=== PATIENT | female | born 1945 | race Caucasian/White ===

== ENCOUNTER → 2016-10-16 | Outpatient (REF) | payer MEDICARE, OTHER ==
[~2016-10-16] MED LIST: /FEXO18TA; /PANT40TA; ALLO100T; BABY81CH; CO Q200C PO; CRES5TAB; ISOS10TA2 PO; LOPR50TA; LUNE3TAB PO; MAXZ75TA2; PLAVIX PO; VERAMYST
[2016-10-16 13:25] LABS: BASO # 0.1 K/mm3 (0.0-0.2); BASO % 0.5 % (0.0-1.0); EOS # 0.2 K/mm3 (0.0-0.50); EOS % 1.5 % (0.0-3.0); LARGE UNSTAINED CELL # 0.1 K/mm3 (0.0-0.4); LARGE UNSTAINED CELL % 1.2 % (0.0-4.0); LYMPH # 1.9 K/mm3 (1.5-4.5); LYMPH % 16.3 % (24.0-44.0); MEAN CORPUSCULAR HEMOGLOBIN 30.7 pg (27.0-33.0); MEAN CORPUSCULAR HGB CONC 33.2 g/dl (32.0-36.5); MEAN CORPUSCULAR VOLUME 92.5 fl (80.0-96.0); MONO # 0.6 K/mm3 (0.0-0.8); MONO % 5.3 % (0.0-5.0); NEUTROPHILS % 75.2 % (36.0-66.0); PLATELET COUNT, AUTOMATED 232 k/mm3 (150-450); RED CELL DISTRIBUTION WIDTH 14.2 % (11.5-14.5); WHITE BLOOD COUNT 10.6 K/mm3 (4.0-10.0)
[2016-10-16 13:33] LABS: ALBUMIN 3.7 GM/DL (3.2-5.2); ALBUMIN/GLOBULIN RATIO 1.23 (1.00-1.93); BILIRUBIN,TOTAL 0.3 MG/DL (0.2-1.0); CREATININE FOR GFR 1.44 MG/DL (0.55-1.02); GLOMERULAR FILTRATION RATE 38.1 (>39); PERCENT SATURATION 22.5 % (13.2-37.4); TOTAL PROTEIN 6.7 GM/DL (6.4-8.2)
== END ==
LOC: M SFHCPLAZ 10:51
PROVIDERS: ATTEND Family Medicine
DX: M10.9 Gout, unspecified (principal); E11.9 Type 2 diabetes mellitus without complications; E78.2 Mixed hyperlipidemia

== ENCOUNTER → 2017-03-08 | Outpatient (REF) | payer MEDICARE, OTHER ==
[2017-03-08 14:33] LABS: CALCIUM OXALATE CRYSTALS SMALL
[2017-03-08 15:22] LABS: ALBUMIN 3.6 GM/DL (3.2-5.2); ALBUMIN/GLOBULIN RATIO 1.16 (1.00-1.93); BILIRUBIN,TOTAL 0.4 MG/DL (0.2-1.0); CALCIUM LEVEL 9.5 MG/DL (8.8-10.2); CREATININE FOR GFR 1.55 MG/DL (0.55-1.02); MAGNESIUM LEVEL 2.4 MG/DL (1.8-2.4); POTASSIUM SERUM 3.9 MEQ/L (3.5-5.1); TOTAL PROTEIN 6.7 GM/DL (6.4-8.2)
[2017-03-08 15:49] LABS: BASO # 0.1 K/mm3 (0.0-0.2); BASO % 0.5 % (0.0-1.0); EOS # 0.2 K/mm3 (0.0-0.50); EOS % 1.3 % (0.0-3.0); LARGE UNSTAINED CELL # 0.1 K/mm3 (0.0-0.4); LARGE UNSTAINED CELL % 1.1 % (0.0-4.0); LYMPH # 1.5 K/mm3 (1.5-4.5); LYMPH % 11.2 % (24.0-44.0); MEAN CORPUSCULAR HEMOGLOBIN 29.8 pg (27.0-33.0); MEAN CORPUSCULAR HGB CONC 31.9 g/dl (32.0-36.5); MEAN CORPUSCULAR VOLUME 93.5 fl (80.0-96.0); MONO # 0.6 K/mm3 (0.0-0.8); NEUTROPHILS % 80.9 % (36.0-66.0); PLATELET COUNT, AUTOMATED 237 k/mm3 (150-450); RED CELL DISTRIBUTION WIDTH 14.4 % (11.5-14.5); WHITE BLOOD COUNT 12.3 K/mm3 (4.0-10.0)
== END ==
LOC: M SFHCPLAZ 11:02
PROVIDERS: ATTEND Family Medicine
DX: N18.3 Chronic kidney disease, stage 3 (moderate) (principal); E11.9 Type 2 diabetes mellitus without complications; N25.81 Secondary hyperparathyroidism of renal origin

== ENCOUNTER → 2017-06-22 | Outpatient (CLI) | payer MEDICARE, BC, OTHER ==
[2017-06-22 12:28] LABS: BASO # 0.1 10^3/uL (0.0-0.2); BASO % 0.5 % (0.0-1.0); EOS # 0.2 10^3/uL (0.0-0.50); IMMATURE GRANULOCYTE % 0.4 % (0-0); LYMPH # 2.1 10^3/uL (1.5-4.5); LYMPH % 18.7 % (24.0-44.0); MEAN CORPUSCULAR HEMOGLOBIN 29.8 pg (27.0-33.0); MEAN CORPUSCULAR HGB CONC 33.2 g/dl (32.0-36.5); MEAN CORPUSCULAR VOLUME 89.8 fl (80.0-96.0); MONO # 1.1 10^3/uL (0.0-0.8); MONO % 9.7 % (0.0-5.0); NEUTROPHILS # 7.6 10^3/uL (1.8-7.7); NEUTROPHILS % 68.7 % (36.0-66.0); PLATELET COUNT, AUTOMATED 249 10^3/uL (150-450); RED CELL DISTRIBUTION WIDTH 14.6 % (11.5-14.5)
[2017-06-22 13:14] LABS: ALBUMIN 3.5 GM/DL (3.2-5.2); ALKALINE PHOSPHATASE 91 U/L (45-117); ALT/SGPT 15 U/L (12-78); ANION GAP 7 MEQ/L (8-16); AST/SGOT 18 U/L (7-37); BILIRUBIN,TOTAL 0.6 MG/DL (0.2-1.0); BLOOD UREA NITROGEN 22 MG/DL (7-18); CALCIUM LEVEL 8.8 MG/DL (8.8-10.2); CARBON DIOXIDE LEVEL 26 MEQ/L (21-32); CHLORIDE LEVEL 106 MEQ/L (98-107); CHOLESTEROL LEVEL 158 MG/DL (<200); CREATININE FOR GFR 1.69 MG/DL (0.55-1.02); FERRITIN 35 NG/ML (8-252); FREE T4 1.15 NG/DL (0.76-1.46); GLOMERULAR FILTRATION RATE 31.7 (>39); GLUCOSE, FASTING 105 MG/DL (83-110); MAGNESIUM LEVEL 2.3 MG/DL (1.8-2.4); PERCENT SATURATION 27.9 % (13.2-45.0); POTASSIUM SERUM 4.3 MEQ/L (3.5-5.1); SODIUM LEVEL 139 MEQ/L (136-145); TOTAL IRON BINDING CAPACITY 301 UG/DL (250-450); TOTAL PROTEIN 6.2 GM/DL (6.4-8.2); TRIGLYCERIDES LEVEL 151 MG/DL (<150)
== END ==
LOC: M LAB 12:10
PROVIDERS: ATTEND Family Medicine
DX: D50.9 Iron deficiency anemia, unspecified (principal); E03.9 Hypothyroidism, unspecified; E78.00 Pure hypercholesterolemia, unspecified; R73.01 Impaired fasting glucose

== ENCOUNTER → 2017-07-12 | Outpatient (REF) | payer MEDICARE, OTHER ==
[2017-07-12 16:51] LABS: VITAMIN B12 LEVEL > 2000 PG/ML (247-911)
[2017-07-12 16:53] LABS: ANION GAP 10 MEQ/L (8-16); BLOOD UREA NITROGEN 17 MG/DL (7-18); CALCIUM LEVEL 8.9 MG/DL (8.8-10.2); CARBON DIOXIDE LEVEL 28 MEQ/L (21-32); CHLORIDE LEVEL 106 MEQ/L (98-107); CHOLESTEROL LEVEL 190 MG/DL (<200); CREATININE FOR GFR 1.48 MG/DL (0.55-1.02); GLOMERULAR FILTRATION RATE 36.8 (>39); GLUCOSE, FASTING 98 MG/DL (83-110); POTASSIUM SERUM 3.1 MEQ/L (3.5-5.1); SODIUM LEVEL 144 MEQ/L (136-145); TRIGLYCERIDES LEVEL 169 MG/DL (<150)
[2017-07-12 16:54] LABS: ALBUMIN 3.9 GM/DL (3.2-5.2)
[2017-07-12 17:06] LABS: IMMUNOGLOBULIN E 27.3 IU/ML (<100)
[2017-07-12 17:22] LABS: BASO # 0.1 10^3/uL (0.0-0.2); BASO % 0.7 % (0.0-1.0); EOS # 0.1 10^3/uL (0.0-0.50); EOS % 1.2 % (0.0-3.0); IMMATURE GRANULOCYTE % 0.4 % (0-0); LYMPH % 16.7 % (24.0-44.0); MEAN CORPUSCULAR HGB CONC 31.2 g/dl (32.0-36.5); MONO # 0.9 10^3/uL (0.0-0.8); MONO % 7.5 % (0.0-5.0); NEUTROPHILS # 8.6 10^3/uL (1.8-7.7); NEUTROPHILS % 73.5 % (36.0-66.0); PLATELET COUNT, AUTOMATED 283 10^3/uL (150-450); RED CELL DISTRIBUTION WIDTH 15.1 % (11.5-14.5); RETIC HEMOGLOBIN EQUIVALENT 34.3 pg (24-36); RETICULOCYTE % 1.6 % (0.5-1.5); WHITE BLOOD COUNT 11.7 10^3/uL (4.0-10.0)
== END ==
LOC: M SFHCPLAZ 11:58
PROVIDERS: ATTEND Family Medicine
DX: D50.9 Iron deficiency anemia, unspecified (principal); N18.3 Chronic kidney disease, stage 3 (moderate); E78.2 Mixed hyperlipidemia; J30.9 Allergic rhinitis, unspecified

== ENCOUNTER 2017-10-05 13:15 | Outpatient (CLI) | payer MEDICARE, BC, OTHER | END 2017-10-09 | LOC: M SLEEP HO 13:15 | DX: G47.33 Obstructive sleep apnea (adult) (pediatric) (principal) | CPT/HCPCS: G0399 ==

== ENCOUNTER → 2018-01-22 | Outpatient (CLI) | payer MEDICARE, BC, OTHER | LOC: M SMT 11:00 | DX: R06.02 Shortness of breath (principal) | CPT/HCPCS: 71046 ==

== ENCOUNTER → 2018-03-11 | Outpatient (CLI) | payer MEDICARE, BC, OTHER ==
[2018-03-11 12:33] LABS: BASO # 0.1 10^3/uL (0.0-0.2); BASO % 0.6 % (0.0-1.0); EOS # 0.3 10^3/uL (0.0-0.50); EOS % 3.4 % (0.0-3.0); HEMATOCRIT 36.2 % (36.0-47.0); HEMOGLOBIN 11.8 g/dl (12.0-15.5); IMMATURE GRANULOCYTE % 0.3 % (0-3.0); LYMPH % 22.6 % (24.0-44.0); MEAN CORPUSCULAR HGB CONC 32.6 g/dl (32.0-36.5); MEAN CORPUSCULAR VOLUME 92.1 fl (80.0-96.0); MONO # 0.8 10^3/uL (0.0-0.8); MONO % 8.9 % (0.0-5.0); NEUTROPHILS # 5.6 10^3/uL (1.8-7.7); NEUTROPHILS % 64.2 % (36.0-66.0); PLATELET COUNT, AUTOMATED 210 10^3/uL (150-450); RED BLOOD COUNT 3.93 10^6/uL (4.00-5.40); RED CELL DISTRIBUTION WIDTH 14.6 % (11.5-14.5); WHITE BLOOD COUNT 8.8 10^3/uL (4.0-10.0)
[2018-03-11 13:39] LABS: VITAMIN B12 LEVEL 1571 PG/ML (247-911)
[2018-03-11 16:35] LABS: ALBUMIN 3.5 GM/DL (3.2-5.2); ALBUMIN/GLOBULIN RATIO 1.17 (1.00-1.93); ALKALINE PHOSPHATASE 94 U/L (45-117); ALT/SGPT 15 U/L (12-78); ANION GAP 10 MEQ/L (8-16); AST/SGOT 17 U/L (7-37); BILIRUBIN,TOTAL 0.4 MG/DL (0.2-1.0); BLOOD UREA NITROGEN 15 MG/DL (7-18); CARBON DIOXIDE LEVEL 25 MEQ/L (21-32); CHLORIDE LEVEL 110 MEQ/L (98-107); CREATININE FOR GFR 1.23 MG/DL (0.55-1.30); GLOMERULAR FILTRATION RATE 45.6 (>39); GLUCOSE, FASTING 88 MG/DL (70-100); MAGNESIUM LEVEL 2.3 MG/DL (1.8-2.4); NT-PRO BNP 1491 PG/ML (<125); POTASSIUM SERUM 3.8 MEQ/L (3.5-5.1); SODIUM LEVEL 145 MEQ/L (136-145); TOTAL PROTEIN 6.5 GM/DL (6.4-8.2)
[2018-03-11 16:51] LABS: ESTIMATED AVERAGE GLUCOSE 128 MG/DL (60-110); HEMOGLOBIN A1c 6.1 %
[2018-03-12 14:28] LABS: INSULIN LEVEL 6.6 uIU/mL (2.6-24.9)
== END ==
LOC: M LAB 11:26
DX: I50.30 Unspecified diastolic (congestive) heart failure (principal); E53.8 Deficiency of other specified B group vitamins; E11.22 Type 2 diabetes mellitus with diabetic chronic kidney disease; N18.3 Chronic kidney disease, stage 3 (moderate)
CPT/HCPCS: 83525

== ENCOUNTER → 2018-07-24 | Outpatient (CLI) | payer MEDICARE, BC, OTHER ==
[2018-07-24 12:23] LABS: BASO # 0.1 10^3/uL (0.0-0.2); BASO % 0.6 % (0.0-1.0); EOS # 0.4 10^3/uL (0.0-0.50); EOS % 4.1 % (0.0-3.0); HEMATOCRIT 38.4 % (36.0-47.0); HEMOGLOBIN 12.1 g/dl (12.0-15.5); LYMPH # 2.2 10^3/uL (1.5-4.5); LYMPH % 22.3 % (24.0-44.0); MEAN CORPUSCULAR HEMOGLOBIN 29.3 pg (27.0-33.0); MEAN CORPUSCULAR HGB CONC 31.5 g/dl (32.0-36.5); MONO % 9.9 % (0.0-5.0); NEUTROPHILS # 6.1 10^3/uL (1.8-7.7); PLATELET COUNT, AUTOMATED 216 10^3/uL (150-450); RED BLOOD COUNT 4.13 10^6/uL (4.00-5.40); WHITE BLOOD COUNT 9.6 10^3/uL (4.0-10.0)
[2018-07-24 12:30] LABS: ALBUMIN 3.4 GM/DL (3.2-5.2); BILIRUBIN,TOTAL 0.4 MG/DL (0.2-1.0); C REACTIVE PROTEIN QUANTITATIV 0.86 MG/DL (0.00-0.30); CALCIUM LEVEL 8.7 MG/DL (8.8-10.2); CHOLESTEROL RISK RATIO 2.796 (<5); CREATININE FOR GFR 1.38 MG/DL (0.55-1.30); GLOMERULAR FILTRATION RATE 39.8 (>39); MAGNESIUM LEVEL 2.1 MG/DL (1.8-2.4); TOTAL PROTEIN 6.4 GM/DL (6.4-8.2); URIC ACID 4.1 MG/DL (2.6-6.0)
[2018-07-24 14:56] LABS: HEMOGLOBIN A1c 6.9 %
== END ==
LOC: M LAB 11:10
PROVIDERS: ATTEND Family Medicine
DX: D72.829 Elevated white blood cell count, unspecified (principal); I50.30 Unspecified diastolic (congestive) heart failure; E78.2 Mixed hyperlipidemia; D50.9 Iron deficiency anemia, unspecified; M10.9 Gout, unspecified

== ENCOUNTER → 2019-01-18 | Outpatient (CLI) | payer MEDICARE, BC, OTHER ==
[~2019-01-18] MED LIST changes: -/PANT40TA; +PROT1TAB2
[2019-01-18 09:28] LABS: ALBUMIN 3.6 GM/DL (3.2-5.2); BILIRUBIN,TOTAL 0.5 MG/DL (0.2-1.0); CALCIUM LEVEL 9.2 MG/DL (8.8-10.2); CREATININE FOR GFR 1.46 MG/DL (0.55-1.30); GLOMERULAR FILTRATION RATE 37.3 (>39); POTASSIUM SERUM 4.1 MEQ/L (3.5-5.1); TOTAL PROTEIN 6.6 GM/DL (6.4-8.2)
[2019-01-18 09:30] LABS: BASO # 0.1 10^3/uL (0.0-0.2); BASO % 0.8 % (0.0-1.0); EOS # 0.5 10^3/uL (0.0-0.50); EOS % 5.6 % (0.0-3.0); HEMOGLOBIN 12.6 g/dl (12.0-15.5); LYMPH # 2.3 10^3/uL (1.5-4.5); LYMPH % 24.9 % (24.0-44.0); MEAN CORPUSCULAR HEMOGLOBIN 30.7 pg (27.0-33.0); MEAN CORPUSCULAR HGB CONC 32.3 g/dl (32.0-36.5); MEAN CORPUSCULAR VOLUME 94.9 fl (80.0-96.0); MONO # 0.9 10^3/uL (0.0-0.8); MONO % 9.9 % (0.0-5.0); NEUTROPHILS # 5.4 10^3/uL (1.8-7.7); NEUTROPHILS % 58.4 % (36.0-66.0); PLATELET COUNT, AUTOMATED 208 10^3/uL (150-450); RED BLOOD COUNT 4.11 10^6/uL (4.00-5.40); WHITE BLOOD COUNT 9.2 10^3/uL (4.0-10.0)
[2019-01-18 13:15] LABS: HEMOGLOBIN A1c 6.2 %
[2019-01-20 10:50] LABS: PTH INTACT 86.6 PG/ML (18.5-88.0)
== END ==
LOC: M LAB 07:49
PROVIDERS: ATTEND Family Medicine
DX: I50.30 Unspecified diastolic (congestive) heart failure (principal); N18.3 Chronic kidney disease, stage 3 (moderate); E11.9 Type 2 diabetes mellitus without complications; E53.8 Deficiency of other specified B group vitamins

== ENCOUNTER → 2019-06-28 | Outpatient (CLI) | payer MEDICARE, BC, OTHER ==
[2019-06-28 11:05] LABS: APPEARANCE, URINE CLEAR (CLEAR); BACTERIA, URINE AUTO 1+ (NEGATIVE); BILIRUBIN, URINE AUTO NEGATIVE (NEGATIVE); BLOOD, URINE BLOOD NEGATIVE (NEGATIVE); COLOR, URINE STRAW (YELLOW); GLUCOSE, URINE (UA) AUTO NEGATIVE (NEGATIVE); KETONE, URINE AUTO NEGATIVE (NEGATIVE); LEUKOCYTE ESTERASE, URINE AUTO NEGATIVE (NEGATIVE); MUCUS, URINE SMALL (NEGATIVE); NITRITE, URINE AUTO NEGATIVE (NEGATIVE); PROTEIN, URINE AUTO NEGATIVE (NEGATIVE); RBC, URINE AUTO 2 /HPF (0-3); SPECIFIC GRAVITY URINE AUTO 1.005 (1.002-1.035); SQUAMOUS EPITHELIAL CELL UR AU 0 /HPF (0-6); UROBILINOGEN, URINE AUTO 0.2 mg/dL (0.0-2.0); WBC, URINE AUTO 1 /HPF (0-3)
[2019-06-28 11:06] LABS: BASO # 0.1 10^3/uL (0.0-0.2); BASO % 0.7 % (0.0-1.0); EOS # 0.4 10^3/uL (0.0-0.5); EOS % 4.5 % (0.0-3.0); HEMATOCRIT 39.2 % (36.0-47.0); HEMOGLOBIN 12.1 g/dl (12.0-15.5); LYMPH # 1.8 10^3/uL (1.5-5.0); LYMPH % 20.3 % (24.0-44.0); MEAN CORPUSCULAR HEMOGLOBIN 28.8 pg (27.0-33.0); MEAN CORPUSCULAR HGB CONC 30.9 g/dl (32.0-36.5); MEAN CORPUSCULAR VOLUME 93.3 fl (80.0-96.0); MONO # 0.8 10^3/uL (0.0-0.8); MONO % 9.1 % (0.0-5.0); NEUTROPHILS # 5.7 10^3/uL (1.5-8.5); NEUTROPHILS % 64.9 % (36.0-66.0); PLATELET COUNT, AUTOMATED 234 10^3/uL (150-450); WHITE BLOOD COUNT 8.8 10^3/uL (4.0-10.0)
[2019-06-28 11:22] LABS: HEMOGLOBIN A1c 6.4 %
[2019-06-28 11:34] LABS: CREATININE, URINE 19.1 MG/DL; MALB URINE SIEMENS 27.3 MG/L; MAU/CREAT RATIO 142.9 MCG/MG (0.0-30.0)
[2019-06-28 11:35] LABS: ALBUMIN 3.3 GM/DL (3.2-5.2); ALT/SGPT 15 U/L (12-78); BILIRUBIN,TOTAL 0.4 MG/DL (0.2-1.0); BLOOD UREA NITROGEN 15 MG/DL (7-18); C REACTIVE PROTEIN QUANTITATIV 0.46 MG/DL (0.00-0.30); CALCIUM LEVEL 8.8 MG/DL (8.8-10.2); CARBON DIOXIDE LEVEL 29 MEQ/L (21-32); CHLORIDE LEVEL 108 MEQ/L (98-107); CHOLESTEROL LEVEL 173 MG/DL (<200); CHOLESTEROL RISK RATIO 3.264 (<5); CPK CREATINE PHOSPHOKINASE 81 U/L (26-192); CREATININE FOR GFR 1.27 MG/DL (0.55-1.30); FREE T4 0.99 NG/DL (0.76-1.46); GLOMERULAR FILTRATION RATE 43.7 (>39); GLUCOSE, FASTING 115 MG/DL (70-100); HDL CHOLESTEROL 53 MG/DL (>40); LDL CHOLESTEROL 78 MG/DL (<100); NON-HDL-C 120 MG/DL; POTASSIUM SERUM 3.6 MEQ/L (3.5-5.1); SODIUM LEVEL 144 MEQ/L (136-145); TOTAL PROTEIN 6.4 GM/DL (6.4-8.2); TRIGLYCERIDES LEVEL 208 MG/DL (<150)
== END ==
LOC: M LAB 10:31
PROVIDERS: ATTEND Family Medicine
DX: D50.9 Iron deficiency anemia, unspecified (principal); E11.9 Type 2 diabetes mellitus without complications

== ENCOUNTER → 2019-11-28 | Outpatient (REF) | payer MEDICARE, OTHER ==
[2019-11-28 15:24] LABS: HEMATOCRIT 38.5 % (36.0-47.0)
[2019-11-28 15:39] LABS: ALBUMIN 3.8 GM/DL (3.2-5.2); BILIRUBIN,TOTAL 0.3 MG/DL (0.2-1.0); CALCIUM LEVEL 9.7 MG/DL (8.8-10.2); CREATININE FOR GFR 1.55 MG/DL (0.55-1.30); FREE T4 1.18 NG/DL (0.76-1.46); GLOMERULAR FILTRATION RATE 34.7 (>39); MAGNESIUM LEVEL 2.5 MG/DL (1.8-2.4); POTASSIUM SERUM 4.9 MEQ/L (3.5-5.1); THYROID STIMULATING HORMONE 2.75 uIU/ML (0.358-3.740); TOTAL PROTEIN 7.1 GM/DL (6.4-8.2); URIC ACID 4.3 MG/DL (2.6-6.0)
[2019-11-28 15:45] LABS: HEMOGLOBIN A1c 6.8 %
[2019-11-28 17:26] LABS: APPEARANCE, URINE CLEAR (CLEAR); BACTERIA, URINE AUTO NEGATIVE (NEGATIVE); BILIRUBIN, URINE AUTO NEGATIVE (NEGATIVE); BLOOD, URINE BLOOD NEGATIVE (NEGATIVE); COLOR, URINE YELLOW (YELLOW); GLUCOSE, URINE (UA) AUTO NEGATIVE (NEGATIVE); KETONE, URINE AUTO NEGATIVE (NEGATIVE); LEUKOCYTE ESTERASE, URINE AUTO NEGATIVE (NEGATIVE); MUCUS, URINE SMALL (NEGATIVE); NITRITE, URINE AUTO NEGATIVE (NEGATIVE); PROTEIN, URINE AUTO NEGATIVE (NEGATIVE); RBC, URINE AUTO 1 /HPF (0-3); SPECIFIC GRAVITY URINE AUTO 1.013 (1.002-1.035); SQUAMOUS EPITHELIAL CELL UR AU 1 /HPF (0-6); UROBILINOGEN, URINE AUTO 0.2 mg/dL (0.0-2.0); WBC, URINE AUTO 1 /HPF (0-3)
== END ==
LOC: M SFHCPLAZ 12:21
PROVIDERS: ATTEND Family Medicine
DX: E11.9 Type 2 diabetes mellitus without complications (principal); E78.2 Mixed hyperlipidemia; D50.9 Iron deficiency anemia, unspecified; N18.3 Chronic kidney disease, stage 3 (moderate); M10.9 Gout, unspecified; I50.30 Unspecified diastolic (congestive) heart failure; E53.8 Deficiency of other specified B group vitamins
CPT/HCPCS: 36415; 80053; 81001; 82043; 82607; 82747; 83036; 83525; 83735; 83880; 83970; 84439; 84443; 84550; 85046; G0463

== ENCOUNTER → 2020-02-10 | Outpatient (CLI) | payer MEDICARE, BC, OTHER ==
[~2020-02-10] MED LIST changes: +ALLE180T33 PO; +B-122500 PO; +CLOP75TA2 PO; +COQ-100C5 PO; +CVS1CAP2 PO; +DULE200A INH; +E-Z-GAS II EFFERVESCENT PACKET (SODIUM BICARB./CITRIC ACID/SIMETHICONE) As Ordered ONE; +E-Z-HD 98% w/w 340GM SUSP BTL As Ordered ONE; +E-Z-PAQUE 96% w/w SUSP 176GM BTL As Ordered ONE; +ECOT81TA5 PO; +LASI20TA3 PO; +LOSA25TA14; +METO1TAB32; +MIRA3350 PO; +MOME50SP NARES; +POTA10CA32 PO; +PRESCAP PO; +ROCA0.5C; +SIME80TA12 PO; +SUCR1TA PO; +TUMS500C PO
--- NOTE | 2020-02-10 22:55 | REP ---
Upper GI Air Contrast with SBFT The procedure was performed by DARWIN Browne, under the the direct supervision of Dr. Davenport. The images were reviewed with Dr. Davenport. The talent scout film shows no organomegaly or pathological masses. The intestinal gas pattern appears normal. There are multiple surgical clips in the patient's pelvis as well as chest from previous surgeries. There are degenerative changes of the cervical spine. Liquid barium and gas producing crystals were given in the erect position as well as liquid barium in the prone position in order to perform a double contrast upper GI examination. The oral and pharyngeal stages of deglutition were unremarkable. Esophageal transport is efficient and there is no esophagitis, stricture, or mucosal ring noted. There there is a small hiatal hernia. Gastroesophageal reflux as visualized to the level of the thoracic inlet. The stomach akers are normally outlined. The rugal folds are smooth and regular. There is no gastritis, neoplasm, or ulcer disease noted. The duodenal akers are normally outlined. The mucosal folds are smooth and regular. There is no duodenitis, peptic ulcer disease, or neoplasm noted. The visualized portion of the proximal small bowel appears normal in course and caliber. The barium column was followed through the small bowel to the level of the terminal ileum. Small bowel transit time was approximately 150 minutes. During fluoroscopy gentle palpation shows all loops are freely mobile and pliable. There are no fixed or angulated loops. The small bowel mucosal pattern is normal in course and caliber. There is no transition to set suggest a partial small-bowel obstruction. Spot filming of the terminal ileum shows it to be unremarkable, but visualization was limited due to small bowel crowding. Impression: 1. Small hiatal hernia. 2. Gastroesophageal reflux to the thoracic inlet. 3. Limited visualization and a normal appearing terminal ileum. 0.5 minutes of fluoroscopy time was utilized for this procedure. Some fluoroscopic images are performed with last image hold technology. These images require no additional radiation. Reviewed by DARWIN Barry 02/10/2020 04:18 P Electronically Signed by Marino Davenport MD 02/10/2020 10:46 P
== END ==
LOC: M RAD 09:39
PROVIDERS: ATTEND Family Medicine
DX: K21.9 Gastro-esophageal reflux disease without esophagitis (principal); K44.9 Diaphragmatic hernia without obstruction or gangrene

== ENCOUNTER → 2020-04-12 | Outpatient (CLI) | payer MEDICARE, BC, OTHER ==
[~2020-04-12] MED LIST changes: -E-Z-GAS II EFFERVESCENT PACKET (SODIUM BICARB./CITRIC ACID/SIMETHICONE) As Ordered ONE; -E-Z-HD 98% w/w 340GM SUSP BTL As Ordered ONE; -E-Z-PAQUE 96% w/w SUSP 176GM BTL As Ordered ONE
[2020-04-12 11:39] LABS: BASO # 0.1 10^3/uL (0.0-0.2); BASO % 0.4 % (0.0-1.0); EOS # 0.3 10^3/uL (0.0-0.5); EOS % 2.3 % (0.0-3.0); HEMOGLOBIN 9.8 g/dl (12.0-15.5); LYMPH # 1.7 10^3/uL (1.5-5.0); LYMPH % 14.4 % (24.0-44.0); MEAN CORPUSCULAR HEMOGLOBIN 27.5 pg (27.0-33.0); MEAN CORPUSCULAR HGB CONC 31.6 g/dl (32.0-36.5); MEAN CORPUSCULAR VOLUME 87.1 fl (80.0-96.0); MONO # 1.2 10^3/uL (0.0-0.8); MONO % 9.9 % (0.0-5.0); NEUTROPHILS # 8.5 10^3/uL (1.5-8.5); NEUTROPHILS % 72.7 % (36.0-66.0); PLATELET COUNT, AUTOMATED 236 10^3/uL (150-450); RED BLOOD COUNT 3.56 10^6/uL (4.00-5.40); WHITE BLOOD COUNT 11.7 10^3/uL (4.0-10.0)
[2020-04-12 12:03] LABS: ALBUMIN 3.3 GM/DL (3.2-5.2); BILIRUBIN,TOTAL 0.7 MG/DL (0.2-1.0); CALCIUM LEVEL 8.8 MG/DL (8.8-10.2); CHOLESTEROL RISK RATIO 2.459 (<5); CREATININE FOR GFR 1.49 MG/DL (0.55-1.30); GLOMERULAR FILTRATION RATE 36.3 (>39); POTASSIUM SERUM 3.5 MEQ/L (3.5-5.1); TOTAL PROTEIN 6.5 GM/DL (6.4-8.2)
[2020-04-12 12:11] LABS: PTH INTACT 97.5 PG/ML (18.5-88.0); TOTAL 25(OH) VITAMIN D 22.6 NG/ML (30.0-100.0)
[2020-04-12 12:45] LABS: HEMOGLOBIN A1c 6.3 %
== END ==
LOC: M LAB 10:12
PROVIDERS: ATTEND Family Medicine
DX: N18.3 Chronic kidney disease, stage 3 (moderate) (principal); I12.9 Hypertensive chronic kidney disease with stage 1 through stage 4 chronic kidney disease, or unspecified chronic kidney disease; E78.5 Hyperlipidemia, unspecified; D50.9 Iron deficiency anemia, unspecified; E11.8 Type 2 diabetes mellitus with unspecified complications; E21.3 Hyperparathyroidism, unspecified

== ENCOUNTER → 2020-04-23 | Outpatient (CLI) | payer MEDICARE, BC, OTHER ==
[2020-04-23 15:40] LABS: BASO # 0.1 10^3/uL (0.0-0.2); BASO % 0.6 % (0.0-1.0); EOS # 0.2 10^3/uL (0.0-0.5); HEMATOCRIT 36.2 % (36.0-47.0); LYMPH % 18.3 % (24.0-44.0); MEAN CORPUSCULAR HEMOGLOBIN 26.6 pg (27.0-33.0); MEAN CORPUSCULAR HGB CONC 30.4 g/dl (32.0-36.5); MEAN CORPUSCULAR VOLUME 87.7 fl (80.0-96.0); MONO # 0.8 10^3/uL (0.0-0.8); MONO % 7.3 % (0.0-5.0); NEUTROPHILS # 7.9 10^3/uL (1.5-8.5); NEUTROPHILS % 71.5 % (36.0-66.0); PLATELET COUNT, AUTOMATED 301 10^3/uL (150-450); RED BLOOD COUNT 4.13 10^6/uL (4.00-5.40); WHITE BLOOD COUNT 11.1 10^3/uL (4.0-10.0)
[2020-04-23 16:07] LABS: ERYTHROCYTE SEDIMENTATION RATE 55 mm/hr (0-30)
[2020-04-23 16:10] LABS: C REACTIVE PROTEIN QUANTITATIV 0.31 MG/DL (0.00-0.30); FREE T4 1.01 NG/DL (0.76-1.46); PERCENT SATURATION 10.2 % (13.2-45.0); THYROID STIMULATING HORMONE 2.26 uIU/ML (0.358-3.740)
== END ==
LOC: M PLALAB 15:03
PROVIDERS: ATTEND Family Medicine
DX: D64.9 Anemia, unspecified (principal); D72.829 Elevated white blood cell count, unspecified

== ENCOUNTER 2020-05-26 11:36 | Outpatient (CLI) | payer MEDICARE, BC, OTHER ==
[~2020-05-26 11:36] MED LIST changes: -ALLE180T33 PO; -B-122500 PO; -CLOP75TA2 PO; -COQ-100C5 PO; -CVS1CAP2 PO; -DULE200A INH; -ECOT81TA5 PO; -LASI20TA3 PO; -LOSA25TA14; -METO1TAB32; -MIRA3350 PO; -MOME50SP NARES; -POTA10CA32 PO; -PRESCAP PO; -ROCA0.5C; -SIME80TA12 PO; -SUCR1TA PO; -TUMS500C PO
[2020-05-26 11:40] VITALS: BP 184/79
[2020-05-26] MEDS ORDERED: ALBUTEROL SULFATE 2.5 MG/0.5 ML INH NEB SOLN INH PRN (11:45)
[2020-05-26] MEDS ORDERED: methylPREDNISolone 125MG 2ML VIAL IV PRN (11:45)
[2020-05-26] MEDS ORDERED: EPINEPHrine INJ 1 MG/ML 1ML AMP IM PRN (11:45)
[2020-05-26] MEDS ORDERED: diphenhydrAMINE 50MG/ML VIAL (J1200) IV PRN (11:45)
[2020-05-26] MEDS ORDERED: FERRIC CARBOXYMALTOSE INJ 750 MG in NS 250 ML IV ONE (11:45)
[2020-05-26] MEDS ORDERED: NS 1,000 ML IV SCH (11:45)
[2020-05-26 12:35] VITALS: BP 124/57
[2020-05-26 13:35] VITALS: BP 135/63
[2020-05-26] MEDS ORDERED: SUCR1TA PO (14:44)
[2020-05-26] MEDS ORDERED: MOME50SP NARES (14:46)
[2020-05-26] MEDS ORDERED: DULE200A INH (14:46)
[2020-05-26] MEDS ORDERED: B-122500 PO (14:46)
[2020-05-26] MEDS ORDERED: PRESCAP PO (14:47)
[2020-05-26] MEDS ORDERED: POTA10CA32 PO (14:49)
[2020-05-26] MEDS ORDERED: LASI20TA3 PO (14:49)
[2020-05-26] MEDS ORDERED: CLOP75TA2 PO (14:51)
[2020-05-26 15:20] VITALS: BP 140/70
== END 2020-05-26 15:20 | disposition home or self-care (01) ==
LOC: M INFU 11:36
PROVIDERS: ATTEND Family Medicine
DX: D50.9 Iron deficiency anemia, unspecified (principal)
CPT/HCPCS: 96365; 96366; J1439

== ENCOUNTER → 2020-06-02 | Outpatient (CLI) | payer MEDICARE, BC, OTHER ==
[~2020-06-02] MED LIST changes: +ALLE180T33 PO; +B-122500 PO; +CLOP75TA2 PO; +COQ-100C5 PO; +CVS1CAP2 PO; +DULE200A INH; +ECOT81TA5 PO; +LASI20TA3 PO; +LOSA25TA14; +METO1TAB32; +MIRA3350 PO; +MOME50SP NARES; +POTA10CA32 PO; +PRESCAP PO; +ROCA0.5C; +SIME80TA12 PO; +SUCR1TA PO; +TUMS500C PO
== END ==
LOC: M LABSMTC 13:00
PROVIDERS: ATTEND Anesthesiology
DX: Z01.818 Encounter for other preprocedural examination (principal)
CPT/HCPCS: C9803; U0003

== ENCOUNTER 2020-06-07 09:29 | Day surgery (SDC) | payer MEDICARE, BC, OTHER ==
[~2020-06-07] VITALS: Ht 152.4 cm; Wt 62.8 kg
[~2020-06-07 09:29] MED LIST changes: +LIDOCAINE 2% 100MG/5ML SDV (FOR ANES.) As Ordered ONE; +NS 1,000 ML IV ONE; +propofoL 200 MG/20 ML VIAL As Ordered ONE
--- NOTE | 2020-06-07 10:41 | ROOR ---
Patient Name: Ana Dugan Procedure Date: 06/07/2020 10:29 AM Date of : 1945 Age: 74 Room: [facility] Gender: Female Note Status: Finalized Procedure: Upper Endoscopy + Biopsies Indications: Unexplained iron deficiency anemia Providers: Jose Cooper MD Referring MD: Javier Flores MD Requesting Provider: Medicines: Monitored Anesthesia Care Complications: No immediate complications. Procedure: Pre-Anesthesia Assessment: - The heart rate, respiratory rate, oxygen saturations, blood pressure, adequacy of pulmonary ventilation, and response to care were monitored throughout the procedure. The Endoscope was introduced through the mouth, and advanced to the second part of duodenum. The upper GI endoscopy was accomplished without difficulty. The patient tolerated the procedure well. Findings: The Z-line was regular and was found 38 cm from the incisors. No other significant abnormalities were identified in a careful examination of the stomach. Biopsies were taken with a cold forceps in the gastric antrum for Helicobacter pylori testing. The exam of the duodenum was otherwise normal. Biopsies for histology were taken with a cold forceps in the first portion of the duodenum for evaluation of celiac disease. The exam was otherwise without abnormality. A small hiatal hernia was present. Impression: - Z-line regular, 38 cm from the incisors. - The examination was otherwise normal. - Small hiatal hernia. - Biopsies were taken with a cold forceps for Helicobacter pylori testing. - Biopsies were taken with a cold forceps for evaluation of celiac disease. - The examination was otherwise normal. Recommendation: - Patient has a contact number available for emergencies. The signs and symptoms of potential delayed complications were discussed with the patient. Return to normal activities tomorrow. Written discharge instructions were provided to the patient. - High fiber diet. - Discharge patient to home. - Follow an antireflux regimen. - Continue present medications. - Await pathology results. - Telephone GI clinic for pathology results in 1 week. - Return to referring physician. - The findings and recommendations were discussed with the patient. Joes Cooper MD Jose Cooper MD 06/07/2020 10:40:13 AM Electronically signed by Jose Cooper MD Number of Addenda: 0 Note Initiated On: 06/07/2020 10:29 AM Estimated Blood Loss: Estimated blood loss: none.
[2020-06-07 11:09] VITALS: BP 132/63
== END 2020-06-07 11:12 | disposition home or self-care (01) ==
LOC: M OPP 09:29
PROVIDERS: ATTEND Internal Medicine Gastroenterology
DX: K64.0 First degree hemorrhoids (principal); D50.9 Iron deficiency anemia, unspecified; Z79.82 Long term (current) use of aspirin; Z79.899 Other long term (current) drug therapy; Z88.1 Allergy status to other antibiotic agents; Z88.8 Allergy status to other drugs, medicaments and biological substances; Z91.041 Radiographic dye allergy status; I51.9 Heart disease, unspecified; J44.9 Chronic obstructive pulmonary disease, unspecified; E11.9 Type 2 diabetes mellitus without complications; Z87.891 Personal history of nicotine dependence

== ENCOUNTER → 2020-07-26 | Outpatient (CLI) | payer MEDICARE, BC, OTHER ==
[~2020-07-26] MED LIST changes: -LIDOCAINE 2% 100MG/5ML SDV (FOR ANES.) As Ordered ONE; -NS 1,000 ML IV ONE; -propofoL 200 MG/20 ML VIAL As Ordered ONE
[2020-07-26 14:42] LABS: BASO # 0.1 10^3/uL (0.0-0.2); BASO % 0.6 % (0.0-1.0); EOS # 0.2 10^3/uL (0.0-0.5); EOS % 2.2 % (0.0-3.0); HEMATOCRIT 37.3 % (36.0-47.0); HEMOGLOBIN 11.4 g/dl (12.0-15.5); MEAN CORPUSCULAR HEMOGLOBIN 28.5 pg (27.0-33.0); MEAN CORPUSCULAR HGB CONC 30.6 g/dl (32.0-36.5); MEAN CORPUSCULAR VOLUME 93.3 fl (80.0-96.0); MONO # 0.8 10^3/uL (0.0-0.8); MONO % 7.8 % (0.0-5.0); NEUTROPHILS # 7.3 10^3/uL (1.5-8.5); NEUTROPHILS % 69.9 % (36.0-66.0); PLATELET COUNT, AUTOMATED 232 10^3/uL (150-450); WHITE BLOOD COUNT 10.5 10^3/uL (4.0-10.0)
[2020-07-26 15:13] LABS: ALBUMIN 3.8 GM/DL (3.2-5.2); BLOOD UREA NITROGEN 23 MG/DL (7-18); CALCIUM LEVEL 9.6 MG/DL (8.8-10.2); CARBON DIOXIDE LEVEL 30 MEQ/L (21-32); CHLORIDE LEVEL 104 MEQ/L (98-107); CREATININE FOR GFR 1.58 MG/DL (0.55-1.30); GLOMERULAR FILTRATION RATE 33.9 (>39); GLUCOSE, FASTING 104 MG/DL (70-100); MAGNESIUM LEVEL 2.4 MG/DL (1.8-2.4); NT-PRO BNP 1730 PG/ML (<450); PHOSPHORUS LEVEL 2.5 MG/DL (2.5-4.9); POTASSIUM SERUM 3.4 MEQ/L (3.5-5.1); SODIUM LEVEL 141 MEQ/L (136-145); TROPONIN I < 0.02 NG/ML (< 0.10)
== END ==
LOC: M PLALAB 13:38
PROVIDERS: ATTEND Family Medicine
DX: I50.30 Unspecified diastolic (congestive) heart failure (principal)

== ENCOUNTER → 2020-09-08 | Outpatient (CLI) | payer MEDICARE, BC, OTHER ==
--- NOTE | 2020-09-08 09:43 | REP ---
INDICATION: CKD HTN COMPARISON: 12/10/2014 TECHNIQUE: Real time kramer scale ultrasound examination using curved array transducer followed by color Doppler evaluation of the renal vasculature. FINDINGS: The bilateral kidneys demonstrate increased parenchymal echotexture with cortical thinning and increased central sinus fat consistent with chronic renal disease. The right kidney measures 9.9 x 3.3 x 3.3 cm and includes 1.8 cm upper pole, 1.2 cm midpole, and 1.5 cm peripelvic cysts without hydronephrosis. The left kidney measures 9.9 x 3.9 x 4.6 cm and includes 3.2 cm upper pole and 1.5 cm midpole cysts without hydronephrosis. Bladder is grossly unremarkable. Peak aortic velocity: 74 centimeters/second RIGHT KIDNEY Renal arterial velocity: 575 centimeters/second Renal-aortic ratio: 7.7 Intrarenal resistive indices: 0.81-0.84 Intrarenal acceleration times: 0.048-0.050 LEFT KIDNEY Renal arterial velocity: 140 centimeters/second Renal-aortic ratio: 1.8 Intrarenal resistive indices: 0.82-0.83 Intrarenal acceleration times: 0.028-0.038 IMPRESSION: 1. Kidneys demonstrate chronic renal disease, bilateral cysts and no hydronephrosis. 2. Markedly elevated right renal velocity and renal-aortic ratio suggestive of renal arterial stenosis. <Electronically signed by Artem Suarez > 09/08/20 0904
== END ==
LOC: M RAD 08:37
PROVIDERS: ATTEND Family Medicine
DX: N18.30 Chronic kidney disease, stage 3 unspecified (principal); I10 Essential (primary) hypertension

== ENCOUNTER → 2020-09-20 | Outpatient (CLI) | payer MEDICARE, BC, OTHER ==
[2020-09-20 11:15] LABS: BASO # 0.1 10^3/uL (0.0-0.2); BASO % 0.7 % (0.0-1.0); EOS # 0.3 10^3/uL (0.0-0.5); EOS % 3.2 % (0.0-3.0); HEMATOCRIT 31.9 % (36.0-47.0); HEMOGLOBIN 9.9 g/dl (12.0-15.5); LYMPH # 1.6 10^3/uL (1.5-5.0); LYMPH % 16.2 % (24.0-44.0); MEAN CORPUSCULAR HEMOGLOBIN 29.5 pg (27.0-33.0); MEAN CORPUSCULAR VOLUME 94.9 fl (80.0-96.0); MONO # 0.8 10^3/uL (0.0-0.8); MONO % 8.2 % (2.0-8.0); NEUTROPHILS % 71.1 % (36.0-66.0); PLATELET COUNT, AUTOMATED 234 10^3/uL (150-450); RED BLOOD COUNT 3.36 10^6/uL (4.00-5.40); WHITE BLOOD COUNT 9.8 10^3/uL (4.0-10.0)
[2020-09-20 11:49] LABS: ALBUMIN 3.8 GM/DL (3.2-5.2); CREATININE FOR GFR 3.04 MG/DL (0.55-1.30); GLOMERULAR FILTRATION RATE 15.9 (>39); PHOSPHORUS LEVEL 4.7 MG/DL (2.5-4.9); POTASSIUM SERUM 4.4 MEQ/L (3.5-5.1); URIC ACID 4.6 MG/DL (2.6-6.0)
== END ==
LOC: M LAB 09:59
PROVIDERS: ATTEND Family Medicine
DX: D50.9 Iron deficiency anemia, unspecified (principal); I50.30 Unspecified diastolic (congestive) heart failure; M10.9 Gout, unspecified

== ENCOUNTER → 2020-09-28 | Outpatient (REF) | payer MEDICARE, OTHER ==
[2020-09-28 10:34] LABS: BASO % 0.4 % (0.0-1.0); EOS # 0.3 10^3/uL (0.0-0.5); EOS % 3.2 % (0.0-3.0); HEMOGLOBIN 9.9 g/dl (12.0-15.5); LYMPH # 1.9 10^3/uL (1.5-5.0); LYMPH % 18.1 % (24.0-44.0); MEAN CORPUSCULAR HEMOGLOBIN 29.5 pg (27.0-33.0); MEAN CORPUSCULAR HGB CONC 30.9 g/dl (32.0-36.5); MEAN CORPUSCULAR VOLUME 95.2 fl (80.0-96.0); MONO # 1.1 10^3/uL (0.0-0.8); MONO % 10.4 % (2.0-8.0); NEUTROPHILS # 6.9 10^3/uL (1.5-8.5); NEUTROPHILS % 67.3 % (36.0-66.0); PLATELET COUNT, AUTOMATED 245 10^3/uL (150-450); RED BLOOD COUNT 3.36 10^6/uL (4.00-5.40); WHITE BLOOD COUNT 10.2 10^3/uL (4.0-10.0)
[2020-09-28 10:41] LABS: INR 0.99; PARTIAL THROMBOPLASTIN TIME 30.2 SECONDS (24.2-38.5); PROTHROMBIN TIME 13.3 SECONDS (12.5-14.3)
[2020-09-28 11:03] LABS: ALBUMIN 3.9 GM/DL (3.2-5.2); CALCIUM LEVEL 9.5 MG/DL (8.8-10.2); CREATININE FOR GFR 2.22 MG/DL (0.55-1.30); GLOMERULAR FILTRATION RATE 22.9 (>39); PHOSPHORUS LEVEL 3.3 MG/DL (2.5-4.9); POTASSIUM SERUM 4.5 MEQ/L (3.5-5.1)
== END ==
LOC: M SFHCPLAZ 08:08
PROVIDERS: ATTEND Family Medicine
DX: E11.22 Type 2 diabetes mellitus with diabetic chronic kidney disease (principal); I70.1 Atherosclerosis of renal artery; N18.30 Chronic kidney disease, stage 3 unspecified

== ENCOUNTER → 2020-10-12 | Outpatient (CLI) | payer MEDICARE, BC, OTHER ==
[~2020-10-12] MED LIST changes: +AMLO1TAB24 PO; +AMLO25TA PO; +ISOVUE-300 61% 50ML VIAL As Ordered ONE; +LIDOCAINE 1% MDV 20ML VIAL As Ordered ONE; +MIDAZOLAM INJ 2MG/2ML VIAL (J2250 PER 1MG) As Ordered ONE; +SPIR-10 PO; +TORS20TA2 PO; +diphenhydrAMINE 50MG/ML VIAL (J1200) As Ordered ONE; +fentaNYL 100 MCG/2 ML INJECTION (J3010) As Ordered ONE
--- NOTE | 2020-10-12 10:48 | ROOPDOC ---
[facility] Report Of Operation Report of Operation DATE OF PROCEDURE: 10/12/20 PREPROCEDURE DIAGNOSES: Right renal artery stenosis, worsening renal function, hypertension POSTPROCEDURE DIAGNOSES: Same PROCEDURE: 1. Ultrasound-guided access right common femoral artery 2. Aortorenal arteriogram 3. Selection right renal artery and arteriogram 4. Predilation right renal artery with 4 x 40 Kaushik balloon 5. Placement of a right proximal renal artery balloon expandable stent, 5 x 19 express renal stent 6. Completion aortorenal and right renal arteriograms 7. Mynx closure right common femoral artery SURGEON: Adriana Romero MD ANESTHESIA: Local anesthesia 8 mL lidocaine. Moderate intravenous conscious sedation was supervised by Dr. Romero. The patient was independently monitored by registered nurse assigned to the Department of radiology using automated blood pressure, EKG, and pulse oximetry. The detailed sedation record is permanently stored in the hospital information system. The following is a brief sedation record: Start time 09:31, stop time 10:14, Versed 1 mg IV, fentanyl 50 g IV, heparin 3000 units IV. CONTRAST: 26 mL Isovue-300 INDICATION FOR PROCEDURE: This is a very pleasant 75-year-old patient with difficult to control hypertension on 3 antihypertensives and 2 diuretics, worsening renal insufficiency, and renal ultrasound suggesting a severe stenosis at the origin of the right renal artery with a PSV of 574 and a renal aortic ratio of 7.8. Risks benefits and alternatives to an aortorenal arteriogram, renal arteriogram on the right, and possible intervention were explained to the patient. With her decreased GFR, we discussed with her the increased risk of acute on chronic renal insufficiency due to ODALYS. We will use as little contrast as possible, and hydrate her before during and after the procedure, but no amount of contrast, no matter how small, is without risk. She understands this. Additionally, she has a contrast allergy. We verify today that the patient didn' t take her appropriate pretreatment with steroids and Benadryl. Again, we will use as little contrast as possible. After lengthy discussion the patient was agreeable to proceed. Informed consent was obtained. INTERPRETATION: 1. The aorta at the renal arteries is widely patent with excellent flow into the left renal artery, but I estimate 90-95% at the origin of the right renal art mckay. Distal to the stenosis, there is mild poststenotic dilatation, and the mid and distal portions of the renal artery appear widely patent. There is a bulky bit of calcium on the right lateral aorta just distal to the origin of the right renal artery that causes a 30% stenosis inferior to the renal arteries in the aorta, with some mild poststenotic dilatation in the aorta. 2. After predilation of the proximal renal artery with a Kaushik balloon, there is increased luminal diameter sufficient for stent placement, no extravasation or dissection noted, no embolization noted. 3. Several images were obtained to verify the stent would be across the orifice of the renal artery origin on the right, and after confirming with these images, the stent was deployed and post-stent images confirm there is excellent flow from the aorta into the right renal artery and no residual stenosis noted, no dissection no embolization no extravasation. REPORT OF OPERATION: The patient was brought to the angiographic suite in stable condition. Her bilateral groins were prepped and draped in a sterile fashion. A timeout was performed. Sedation was administered without complication. Local anesthesia was administered to the skin and subcutaneous tissue over the right femoral artery. A microneedle was used to access the right common femoral artery under ultrasound and fluoroscopic guidance. A wire was passed through this access and the needle was removed. A 4 Mexican sheath was placed and flushed with saline. A Glidewire was advanced into the aorta. A flushing catheter was advanced over the wire at the renal arteries. An aorto renal arteriogram was performed, please see interpretation above. We then exchange the sheath over the wire for a 6 x 45 cm Luis Daniel sheath with the tip of the sheath at the origin of the right renal artery. We then utilized a sos catheter to gain access to the right renal artery. This was challenging due to the heavy calcification and degree of stenosis present. Eventually, we were able to safely cross into the renal artery. We advanced the catheter and a selection arteriogram of the right renal artery was performed. We then exchange the wire through the catheter for a 018 Glidewire advantage. We removed the catheter and did a predilation of the proximal right renal artery with a 4 x 40 Kaushik balloon. Following this, there was improved luminal patency sufficient for stent placement. We then adv anced a 5 x 19 balloon expandable stent across the proximal right renal artery. Care was taken to make sure that the stent was placed slightly into the aorta to make sure we have no luminal compromise after stenting. This was done with a few quick contrast injections through the sheath. Once we were satisfied with the placement, the stent was deployed. We retracted the balloon slightly and the aorta and angioplasty a second time to slightly flare the proximal end of the stent into the aorta. Following this, an aortorenal arteriogram was performed through the sheath and we noted excellent flow into both renal arteries. We then replaced the sos catheter in the right renal arteriogram was performed and we noted widely patent flow with no residual stenosis, no dissection, no embolization, no extravasation. Next, we exchange the sheath for short 6 Mexican sheath over an O35 wire, and the sheath was flushed with saline. We deployed a Mynx closure device with good hemostasis. Pressure was held and sterile dressings were applied. The patient was taken to recovery in stable condition. She tolerated the procedure and the sedation well. ESTIMATED BLOOD LOSS: Approximately 5 mL. COMPLICATIONS: None. PLAN: It is okay for the patient to resume her home diet and medications, including Plavix. She will need to follow-up directly with her primary care doctor regarding blood pressure monitoring. She may not require as many antihypertensives if her blood pressure improves with renal stenting. She also will need follow-up regarding her renal function, which we hope will continue to improve. We will see the patient back in clinic next week to check her right groin access site and see how she is doing. We appreciate the opportunity to participate in the care of this patient. ADRIANA ROMERO MD Oct 12, 2020 10:48
[2020-10-12 14:15] VITALS: BP 124/60
== END ==
LOC: M IRPRO 07:41
PROVIDERS: ATTEND Surgery Vascular Surgery
DX: I70.1 Atherosclerosis of renal artery (principal); I13.0 Hypertensive heart and chronic kidney disease with heart failure and stage 1 through stage 4 chronic kidney disease, or unspecified chronic kidney disease; I50.9 Heart failure, unspecified; E55.9 Vitamin D deficiency, unspecified; I73.9 Peripheral vascular disease, unspecified; N18.30 Chronic kidney disease, stage 3 unspecified; Z79.82 Long term (current) use of aspirin; Z79.899 Other long term (current) drug therapy; Z86.73 Personal history of transient ischemic attack (TIA), and cerebral infarction without residual deficits; Z87.891 Personal history of nicotine dependence
CPT/HCPCS: 36251; 37236; 75820; 99152; 99153; C1725; C1729; C1760; C1769; C1876; C1887; C1894; J1644; J2250; J3010; Q9967

== ENCOUNTER → 2020-10-14 | Outpatient (REF) | payer MEDICARE, OTHER ==
[~2020-10-14] MED LIST changes: -ISOVUE-300 61% 50ML VIAL As Ordered ONE; -LIDOCAINE 1% MDV 20ML VIAL As Ordered ONE; -MIDAZOLAM INJ 2MG/2ML VIAL (J2250 PER 1MG) As Ordered ONE; -diphenhydrAMINE 50MG/ML VIAL (J1200) As Ordered ONE; -fentaNYL 100 MCG/2 ML INJECTION (J3010) As Ordered ONE
[2020-10-14 15:34] LABS: BASO # 0.1 10^3/uL (0.0-0.2); BASO % 0.6 % (0.0-1.0); EOS # 0.4 10^3/uL (0.0-0.5); EOS % 3.1 % (0.0-3.0); HEMATOCRIT 34.8 % (36.0-47.0); HEMOGLOBIN 10.9 g/dl (12.0-15.5); LYMPH # 2.9 10^3/uL (1.5-5.0); LYMPH % 22.9 % (24.0-44.0); MEAN CORPUSCULAR HEMOGLOBIN 30.2 pg (27.0-33.0); MEAN CORPUSCULAR HGB CONC 31.3 g/dl (32.0-36.5); MEAN CORPUSCULAR VOLUME 96.4 fl (80.0-96.0); MONO # 1.2 10^3/uL (0.0-0.8); MONO % 9.5 % (2.0-8.0); NEUTROPHILS % 63.3 % (36.0-66.0); PLATELET COUNT, AUTOMATED 262 10^3/uL (150-450); RED BLOOD COUNT 3.61 10^6/uL (4.00-5.40); WHITE BLOOD COUNT 12.7 10^3/uL (4.0-10.0)
[2020-10-14 16:01] LABS: ALBUMIN 3.7 GM/DL (3.2-5.2); CALCIUM LEVEL 8.7 MG/DL (8.8-10.2); CREATININE FOR GFR 1.89 MG/DL (0.55-1.30); GLOMERULAR FILTRATION RATE 27.5 (>39); MAGNESIUM LEVEL 2.3 MG/DL (1.8-2.4); PHOSPHORUS LEVEL 2.7 MG/DL (2.5-4.9); POTASSIUM SERUM 4.4 MEQ/L (3.5-5.1)
== END ==
LOC: M SFHCPLAZ 12:20
PROVIDERS: ATTEND Family Medicine
DX: I50.30 Unspecified diastolic (congestive) heart failure (principal); N18.30 Chronic kidney disease, stage 3 unspecified; D50.9 Iron deficiency anemia, unspecified

== ENCOUNTER 2020-11-22 09:05 | Outpatient (CLI) | payer MEDICARE, BC, OTHER ==
[~2020-11-22] VITALS: Ht 152.4 cm; Wt 63.0 kg
[~2020-11-22 09:05] MED LIST changes: +ALBUTEROL SULFATE 2.5 MG/0.5 ML INH NEB SOLN INH PRN; +EPINEPHrine INJ 1 MG/ML 1ML AMP IM PRN; +diphenhydrAMINE 50MG/ML VIAL (J1200) IV PRN; +methylPREDNISolone 125MG 2ML VIAL IV PRN
[2020-11-22 12:20] VITALS: BP 148/72
[2020-11-22] MEDS ORDERED: FERRIC CARBOXYMALTOSE INJ 750 MG, VIAL MATE ADAPTER 1 EACH in NS 250 ML IV ONE (12:30)
[2020-11-22] MEDS ORDERED: NS 1,000 ML IV SCH (12:30)
[2020-11-22 15:00] VITALS: BP 142/64
== END 2020-11-22 15:00 | disposition home or self-care (01) ==
LOC: M INFU 09:05
PROVIDERS: ATTEND Family Medicine
DX: D50.9 Iron deficiency anemia, unspecified (principal); Z88.8 Allergy status to other drugs, medicaments and biological substances

== ENCOUNTER → 2020-11-22 | Outpatient (CLI) | payer MEDICARE, BC, OTHER ==
--- NOTE | 2020-11-22 10:48 | REP ---
INDICATION: R/O JOHANNY; ATHEROSCLEROSIS. COMPARISON: 09/08/2020. TECHNIQUE: Real-time sonographic evaluation of the kidneys is performed. Duplex Doppler evaluation of renal arteries performed. FINDINGS: The right kidney is mildly atrophic. Both kidneys demonstrate mildly increased echotexture suggesting medical renal disease. There is no hydronephrosis bilaterally. Three cystic structures in the upper right kidney are visualized, the largest measuring 1.9 cm in maximum diameter. A left upper pole cyst measures 3.1 cm in maximum diameter. The right kidney measures 9.2 x 4.9 x 3.8 cm. Left renal dimensions are 10.2 x 4.9 x 4.5 cm. Urinary bladder is empty. Duplex Doppler evaluation of renal arteries performed. The peak systolic velocity of the abdominal aorta at the level of the renal arteries is 63 centimeter/second. There is a patent stent in the proximal main right renal artery. Peak systolic velocity in the main right renal artery is 98 centimeter/second, renal to aortic ratio 1.6. Resistive indices right kidney range between 0.83 and 0.87. Acceleration times are in the range of 0.046. The proximal left renal artery is not seen due to overlying bowel gas. Peak systolic velocity in the mid left renal artery 69 centimeters/second. Resistive indices left kidney range between 0.76 and 0.89. Acceleration times range between 0.033 and 0.046. IMPRESSION: Bilateral renal cysts. No hydronephrosis. Patent stent in the proximal main right renal artery. Proximal main left renal artery not visualized due to overlying bowel gas. Elevated resistive indices compatible with bilateral small vessel disease within the kidneys, however, all acceleration times are within normal limits. <Electronically signed by Marino Davenport > 11/22/20 [id number]
== END ==
LOC: M RAD 09:02
PROVIDERS: ATTEND Physician Assistant
DX: I70.1 Atherosclerosis of renal artery (principal)

== ENCOUNTER → 2020-12-06 | Outpatient (REF) | payer MEDICARE, OTHER ==
[~2020-12-06] MED LIST changes: -ALBUTEROL SULFATE 2.5 MG/0.5 ML INH NEB SOLN INH PRN; -EPINEPHrine INJ 1 MG/ML 1ML AMP IM PRN; -diphenhydrAMINE 50MG/ML VIAL (J1200) IV PRN; -methylPREDNISolone 125MG 2ML VIAL IV PRN
[2020-12-06 13:35] LABS: BASO # 0.1 10^3/uL (0.0-0.2); BASO % 0.6 % (0.0-1.0); EOS # 0.3 10^3/uL (0.0-0.5); HEMATOCRIT 34.3 % (36.0-47.0); HEMOGLOBIN 10.5 g/dl (12.0-15.5); LYMPH # 1.9 10^3/uL (1.5-5.0); LYMPH % 19.7 % (24.0-44.0); MEAN CORPUSCULAR HEMOGLOBIN 29.4 pg (27.0-33.0); MEAN CORPUSCULAR HGB CONC 30.6 g/dl (32.0-36.5); MEAN CORPUSCULAR VOLUME 96.1 fl (80.0-96.0); MONO # 0.8 10^3/uL (0.0-0.8); MONO % 8.5 % (2.0-8.0); NEUTROPHILS # 6.6 10^3/uL (1.5-8.5); NEUTROPHILS % 67.8 % (36.0-66.0); PLATELET COUNT, AUTOMATED 244 10^3/uL (150-450); RED BLOOD COUNT 3.57 10^6/uL (4.00-5.40); WHITE BLOOD COUNT 9.8 10^3/uL (4.0-10.0)
[2020-12-06 14:04] LABS: ALBUMIN 3.6 GM/DL (3.2-5.2); CALCIUM LEVEL 9.3 MG/DL (8.8-10.2); CREATININE FOR GFR 1.56 MG/DL (0.55-1.30); GLOMERULAR FILTRATION RATE 34.4 (>39); MAGNESIUM LEVEL 2.4 MG/DL (1.8-2.4); PHOSPHORUS LEVEL 1.9 MG/DL (2.5-4.9); POTASSIUM SERUM 4.1 MEQ/L (3.5-5.1)
== END ==
LOC: M SFHCPLAZ 11:51
PROVIDERS: ATTEND Family Medicine
DX: I50.30 Unspecified diastolic (congestive) heart failure (principal); N18.30 Chronic kidney disease, stage 3 unspecified; E21.3 Hyperparathyroidism, unspecified

== ENCOUNTER 2021-03-11 10:41 | Outpatient (CLI) | payer MEDICARE, OTHER ==
[~2021-03-11] VITALS: Ht 152.4 cm; Wt 60.9 kg
[2021-03-11] VITALS (7 sets, daily range): BP systolic 91–164; BP diastolic 53–66
[2021-03-11] MEDS ORDERED: diphenhydrAMINE 25MG CAP PO ONE (14:00)
[2021-03-11] MEDS ORDERED: ACETAMINOPHEN TAB 650MG DOSE (2X325MG) PO ONE (14:00)
[2021-03-11] MEDS ORDERED: FUROSEMIDE 40MG/4ML VIAL (J1940) IV ONE (15:45)
== END 2021-03-11 18:35 | disposition home or self-care (01) ==
LOC: M INFU 10:41
PROVIDERS: ATTEND Family Medicine
DX: D64.9 Anemia, unspecified (principal); Z88.8 Allergy status to other drugs, medicaments and biological substances; Z91.041 Radiographic dye allergy status
CPT/HCPCS: 36430; J1940; P9016

== ENCOUNTER → 2021-03-11 | Outpatient (CLI) | payer MEDICARE, OTHER | LOC: M LAB 10:37 | PROVIDERS: ATTEND Family Medicine | DX: D64.9 Anemia, unspecified (principal); Z88.8 Allergy status to other drugs, medicaments and biological substances; Z91.041 Radiographic dye allergy status | CPT/HCPCS: 36415; 36430; 86850; 86870; 86900; 86901; 86920; J1940; P9016 ==

== ENCOUNTER 2021-03-14 10:00 | Outpatient (CLI) | payer MEDICARE, BC, OTHER ==
[~2021-03-14] VITALS: Ht 152.4 cm; Wt 60.9 kg
[~2021-03-14 10:00] MED LIST changes: +ALBUTEROL SULFATE 2.5 MG/0.5 ML INH NEB SOLN INH PRN; +EPINEPHrine INJ 1 MG/ML 1ML AMP IM PRN; -GASTROGRAFIN SOLUTION 30ML (Q9963) As Ordered ONE; +diphenhydrAMINE 50MG/ML VIAL (J1200) IV PRN; +methylPREDNISolone 125MG 2ML VIAL IV PRN
[2021-03-14 12:25] VITALS: BP 159/73
--- NOTE | 2021-03-14 12:51 | REP ---
INDICATION: LOWER GI BLEED CKD III ANEMIA. COMPARISON: Multiple the latest 10/23/2014 also without contrast TECHNIQUE: Standard helical technique without intravenous contrast. Oral bowel preparatory contrast was administered prior to the exam. FINDINGS: There are chronic lung base changes status quo. Once again, there are multiple bilateral renal cysts. Renal cortical thinning has increased from the prior exam. There is cholelithiasis which has developed since the last exam. Hepatic and splenic densities are within normal limits. The pancreas and adrenal glands are unchanged. There is calcific atherosclerotic change seen in the abdominal aorta status quo. There is no free fluid or free air. There are colonic postoperative changes status quo. There is no evidence of an acute bowel abnormality. Chronic changes are seen involving the imaged spine. There is no evidence of a lytic or blastic osseous lesion. IMPRESSION: 1. Chronic renal changes are suspected although seen in limited fashion without intravenous contrast administration. Pre and postcontrast enhanced renal CT is recommended for complete evaluation. If the patient has a creatinine too high to allow for intravenous contrast administration then an MRI is recommended before and after intravenous gadolinium. 2. Cholelithiasis. 3. Other findings as described above. <Electronically signed by Dc Jones > 03/14/21 [id number]
[2021-03-14] MEDS ORDERED: FERRIC CARBOXYMALTOSE INJ 750 MG, VIAL MATE ADAPTER 1 EACH in NS 250 ML IV ONE (13:00)
[2021-03-14] MEDS ORDERED: NS 1,000 ML IV SCH (13:00)
[2021-03-14 13:54] VITALS: BP 157/71
== END 2021-03-14 13:50 | disposition home or self-care (01) ==
LOC: M INFU 10:00
PROVIDERS: ATTEND Family Medicine
DX: D50.9 Iron deficiency anemia, unspecified (principal)

== ENCOUNTER → 2021-03-14 | Outpatient (CLI) | payer MEDICARE, BC, OTHER ==
[~2021-03-14] MED LIST changes: +GASTROGRAFIN SOLUTION 30ML (Q9963) As Ordered ONE
== END ==
LOC: M RAD 09:55
PROVIDERS: ATTEND Family Medicine
DX: N18.32 Chronic kidney disease, stage 3b (principal); K80.20 Calculus of gallbladder without cholecystitis without obstruction; K92.2 Gastrointestinal hemorrhage, unspecified; D50.0 Iron deficiency anemia secondary to blood loss (chronic); Z90.49 Acquired absence of other specified parts of digestive tract; Z87.19 Personal history of other diseases of the digestive system
CPT/HCPCS: 74176; 96365; J1439; Q9963

== ENCOUNTER → 2021-03-27 | Outpatient (CLI) | payer MEDICARE, BC, OTHER ==
[~2021-03-27] MED LIST changes: -ALBUTEROL SULFATE 2.5 MG/0.5 ML INH NEB SOLN INH PRN; -EPINEPHrine INJ 1 MG/ML 1ML AMP IM PRN; -diphenhydrAMINE 50MG/ML VIAL (J1200) IV PRN; -methylPREDNISolone 125MG 2ML VIAL IV PRN
[2021-03-27 14:07] LABS: BASO # 0.1 10^3/uL (0.0-0.2); BASO % 0.5 % (0.0-1.0); EOS # 0.2 10^3/uL (0.0-0.5); EOS % 2.4 % (0.0-3.0); HEMATOCRIT 37.1 % (36.0-47.0); HEMOGLOBIN 11.6 g/dl (12.0-15.5); LYMPH # 1.4 10^3/uL (1.5-5.0); LYMPH % 15.8 % (24.0-44.0); MEAN CORPUSCULAR HEMOGLOBIN 28.7 pg (27.0-33.0); MEAN CORPUSCULAR HGB CONC 31.3 g/dl (32.0-36.5); MEAN CORPUSCULAR VOLUME 91.8 fl (80.0-96.0); MONO # 0.8 10^3/uL (0.0-0.8); MONO % 8.5 % (2.0-8.0); NEUTROPHILS # 6.6 10^3/uL (1.5-8.5); NEUTROPHILS % 72.5 % (36.0-66.0); PLATELET COUNT, AUTOMATED 174 10^3/uL (150-450); RED BLOOD COUNT 4.04 10^6/uL (4.00-5.40); WHITE BLOOD COUNT 9.1 10^3/uL (4.0-10.0)
[2021-03-27 14:44] LABS: ALBUMIN 3.7 GM/DL (3.2-5.2); BILIRUBIN,TOTAL 0.7 MG/DL (0.2-1.0); CALCIUM LEVEL 9.3 MG/DL (8.8-10.2); CREATININE FOR GFR 1.71 MG/DL (0.55-1.30); FREE T4 0.94 NG/DL (0.76-1.46); GLOMERULAR FILTRATION RATE 30.9 (>39); POTASSIUM SERUM 3.9 MEQ/L (3.5-5.1); THYROID STIMULATING HORMONE 2.95 uIU/ML (0.358-3.740); TOTAL PROTEIN 6.8 GM/DL (6.4-8.2)
== END ==
LOC: M LAB 12:50
PROVIDERS: ATTEND Family Medicine
DX: E11.22 Type 2 diabetes mellitus with diabetic chronic kidney disease (principal); I50.30 Unspecified diastolic (congestive) heart failure; N18.30 Chronic kidney disease, stage 3 unspecified; D50.0 Iron deficiency anemia secondary to blood loss (chronic)

== ENCOUNTER 2021-05-02 09:51 | Outpatient (CLI) | payer MEDICARE, BC, OTHER ==
[~2021-05-02] VITALS: Ht 152.4 cm; Wt 60.0 kg
[~2021-05-02 09:51] MED LIST changes: +ALBUTEROL 90 MCG/ACT 8GM HFA INHALER INH PRN; +ALBUTEROL SULFATE 2.5 MG/0.5 ML INH NEB SOLN INH PRN; +CASIRIVIMAB/IMDEVIMAB 1,200 MG in NS 250 ML IV ONE; +EPINEPHrine INJ 1 MG/ML 1ML AMP IM PRN; +diphenhydrAMINE 50MG/ML VIAL (J1200) IV PRN; +methylPREDNISolone 125MG 2ML VIAL IV PRN
[2021-05-02 10:17] VITALS: BP 132/62
[2021-05-02 10:26] VITALS: BP 132/62
[2021-05-02 10:53] VITALS: BP 111/53
[2021-05-02 11:31] VITALS: BP 126/58
[2021-05-02] MEDS ORDERED: ALBUTEROL 90 MCG/ACT 8GM HFA INHALER INH PRN (12:00)
[2021-05-02] MEDS ORDERED: EPINEPHrine INJ 1 MG/ML 1ML AMP IM PRN (12:00)
[2021-05-02] MEDS ORDERED: diphenhydrAMINE 50MG/ML VIAL (J1200) IV PRN (12:00)
[2021-05-02] MEDS ORDERED: CASIRIVIMAB/IMDEVIMAB 1,200 MG in NS 250 ML IV ONE (12:00)
[2021-05-02] MEDS ORDERED: ALBUTEROL SULFATE 2.5 MG/0.5 ML INH NEB SOLN INH PRN (12:00)
[2021-05-02 12:03] LABS: BASO % 0.3 % (0.0-1.0); EOS % 0.2 % (0.0-3.0); HEMATOCRIT 32.3 % (36.0-47.0); HEMOGLOBIN 10.2 g/dl (12.0-15.5); LYMPH # 0.8 10^3/uL (1.5-5.0); LYMPH % 11.4 % (24.0-44.0); MEAN CORPUSCULAR HEMOGLOBIN 29.5 pg (27.0-33.0); MEAN CORPUSCULAR HGB CONC 31.6 g/dl (32.0-36.5); MEAN CORPUSCULAR VOLUME 93.4 fl (80.0-96.0); MONO % 15.4 % (2.0-8.0); NEUTROPHILS # 4.8 10^3/uL (1.5-8.5); NEUTROPHILS % 72.2 % (36.0-66.0); PLATELET COUNT, AUTOMATED 177 10^3/uL (150-450); RED BLOOD COUNT 3.46 10^6/uL (4.00-5.40); WHITE BLOOD COUNT 6.6 10^3/uL (4.0-10.0)
[2021-05-02] MEDS ORDERED: methylPREDNISolone 125MG 2ML VIAL IV PRN (12:20)
[2021-05-02 12:36] VITALS: BP 133/62
[2021-05-02 12:50] LABS: ALBUMIN 2.8 GM/DL (3.2-5.2); ALT/SGPT 12 U/L (12-78); BILIRUBIN,TOTAL 0.3 MG/DL (0.2-1.0); BLOOD UREA NITROGEN 39 MG/DL (7-18); C REACTIVE PROTEIN QUANTITATIV 8.83 MG/DL (0.00-0.30); CALCIUM LEVEL 8.5 MG/DL (8.8-10.2); CARBON DIOXIDE LEVEL 25 MEQ/L (21-32); CHLORIDE LEVEL 105 MEQ/L (98-107); CPK CREATINE PHOSPHOKINASE 90 U/L (26-192); CREATININE FOR GFR 2.26 MG/DL (0.55-1.30); FERRITIN 551 NG/ML (8-252); GLOMERULAR FILTRATION RATE 22.4 (>39); GLUCOSE, FASTING 114 MG/DL (70-100); POTASSIUM SERUM 3.7 MEQ/L (3.5-5.1); SODIUM LEVEL 137 MEQ/L (136-145); TOTAL PROTEIN 5.8 GM/DL (6.4-8.2); TROPONIN I < 0.02 NG/ML (< 0.10)
== END 2021-05-02 12:36 | disposition home or self-care (01) ==
LOC: M OPCLI4PR 09:51 → M OPCLI4 09:51 → M MS4PR 09:55 → M OPCLI4PR 12:36
PROVIDERS: ATTEND Family Medicine
DX: U07.1 COVID-19 (principal); Z79.899 Other long term (current) drug therapy
CPT/HCPCS: 36415; 80053; 82550; 82728; 84484; 85025; 85379; 86140; M0243

== ENCOUNTER → 2021-06-08 | Outpatient (CLI) | payer MEDICARE, BC, OTHER ==
[~2021-06-08] MED LIST changes: -ALBUTEROL 90 MCG/ACT 8GM HFA INHALER INH PRN; -ALBUTEROL SULFATE 2.5 MG/0.5 ML INH NEB SOLN INH PRN; -CASIRIVIMAB/IMDEVIMAB 1,200 MG in NS 250 ML IV ONE; -EPINEPHrine INJ 1 MG/ML 1ML AMP IM PRN; -diphenhydrAMINE 50MG/ML VIAL (J1200) IV PRN; -methylPREDNISolone 125MG 2ML VIAL IV PRN
--- NOTE | 2021-06-08 16:58 | REP ---
INDICATION: CKD, RENAL ARTERY STENOSIS. COMPARISON: Renal ultrasound and renal artery Doppler 11/22/2020, CT without 03/14/2021. TECHNIQUE: Standard renal ultrasound with grayscale imaging followed by renal artery Doppler ultrasound with standard techniques. FINDINGS: RENAL ULTRASOUND: The right kidney is atrophic with cortical thinning and it measures 8.1 x 4.3 x 3.6 cm cortical echogenicity is increased compared to that of the adjacent liver there is significant sinus lipomatosis. No hydronephrosis or hydroureter. There are multiple cysts noted with 3 largest of the right 1.9 x 1.8 cm peripherally in the interpolar region 0.1 x 1 cm laterally and 1.2 x 1.1 cm medially in the upper pole. No solid mass. The left kidney is 10.1 x 3.4 x 4.9 cm it also shows cortical echogenicity increased compared to the liver. There are multiple cysts in which the largest is 3.6 x 3.2 cm peripherally off the upper pole and a 1.7 x 1.4 cm cyst laterally off the interpolar region. The bladder was mostly empty for this exam and could not be reasonably evaluated. RENAL ARTERY DOPPLER ULTRASOUND: Right kidney: 8.1 cm. Peak renal artery velocity: 172 cm/S Peak aortic velocity: 53.4 cm/S Renal aortic ratio 3.2 Resistive index: Upper 0.87, mid 0.64, lower pole 0.75 Acceleration time: Upper 0.04, mid 0.04, lower pole 0.04 Left kidney: 10.1 cm Peak renal artery velocity: 157 cm/S Peak aortic velocity: 53.4 cm/S Renal aortic ratio: 2.9 Resistive index: Upper 0.75, mid 0.83, lower pole 0.76 Acceleration time: Upper 0.05, mid 0.07, lower pole 0.08 Right kidney shows an elevated resistive index in the upper pole and the renal stent is noted proximally in the right ureter at its origin. The left kidney also shows elevated resistive index throughout and elevated acceleration time in the mid and lower pole region. IMPRESSION: 1. Bilateral renal atrophy with cortex more atrophic right than left but with abnormal echogenicity greater than that of the liver for both. Sinus lipomatosis noted with bilateral cysts but no hydronephrosis or solid mass. 2. Bilateral renal artery stenosis by Doppler ultrasound criteria. A renal artery stent is seen at the origin of the right renal artery. <Electronically signed by Charles Steiner > 06/08/21 [id number]
== END ==
LOC: M RAD 09:58
PROVIDERS: ATTEND Family Medicine
DX: N18.30 Chronic kidney disease, stage 3 unspecified (principal); I70.1 Atherosclerosis of renal artery

== ENCOUNTER → 2021-12-16 | Outpatient (CLI) | payer MEDICARE, BC, OTHER ==
[~2021-12-16] MED LIST changes: +LOSA25TA13; -LOSA25TA14; -MOME50SP NARES; +NASO50SP3 NARES
== END ==
LOC: M RAD 08:28
PROVIDERS: ATTEND Family Medicine
DX: I70.1 Atherosclerosis of renal artery (principal)

== ENCOUNTER 2022-01-08 21:19 | Emergency (ER) | payer MEDICARE, BC, OTHER ==
[~2022-01-08] VITALS: Ht 152.4 cm; Wt 60.0 kg
[2022-01-08] MEDS ORDERED: VALS40TA9 PO (22:10)
[2022-01-08] MEDS ORDERED: CALC1CAP31 PO (22:10)
[2022-01-08 22:17] LABS: BASO # 0.1 10^3/uL (0.0-0.2); BASO % 0.5 % (0.0-1.0); EOS # 0.3 10^3/uL (0.0-0.5); HEMATOCRIT 42.3 % (36.0-47.0); HEMOGLOBIN 13.9 g/dl (12.0-15.5); LYMPH # 2.3 10^3/uL (1.5-5.0); MEAN CORPUSCULAR HEMOGLOBIN 30.8 pg (27.0-33.0); MEAN CORPUSCULAR HGB CONC 32.9 g/dl (32.0-36.5); MEAN CORPUSCULAR VOLUME 93.6 fl (80.0-96.0); MONO # 1.2 10^3/uL (0.0-0.8); MONO % 8.3 % (2.0-8.0); NEUTROPHILS # 10.4 10^3/uL (1.5-8.5); NEUTROPHILS % 72.7 % (36.0-66.0); PLATELET COUNT, AUTOMATED 245 10^3/uL (150-450); RED BLOOD COUNT 4.52 10^6/uL (4.00-5.40); WHITE BLOOD COUNT 14.3 10^3/uL (4.0-10.0)
[2022-01-08] MEDS ORDERED: NITROGLYCERIN 0.4 MG SUBL TABLET SL PRN (22:25)
[2022-01-08] MEDS ORDERED: ASPIRIN 81 MG CHEW TABLET PO ONE (22:25)
[2022-01-08 22:41] LABS: CK-MB VALUE MASS 1.4 NG/ML (<3.6); MB/CK RELATIVE INDEX 2.5 (< OR =4)
[2022-01-08 22:50] LABS: ALBUMIN 3.7 GM/DL (3.2-5.2); BILIRUBIN,DIRECT 0.2 MG/DL (0.0-0.2); BILIRUBIN,TOTAL 0.4 MG/DL (0.2-1.0); CALCIUM LEVEL 9.1 MG/DL (8.8-10.2); CREATININE FOR GFR 1.9 MG/DL (0.55-1.30); GLOMERULAR FILTRATION RATE 27.3 (>39); POTASSIUM SERUM 4.4 MEQ/L (3.5-5.1); TOTAL PROTEIN 7.4 GM/DL (6.4-8.2)
[2022-01-08 23:37] LABS: CK-MB VALUE MASS 1.5 NG/ML (<3.6); MB/CK RELATIVE INDEX 2.73 (< OR =4)
[2022-01-09 00:15] VITALS: BP 165/74
== END 2022-01-09 00:19 | disposition home or self-care (01) ==
LOC: M ED 21:19
DX: R07.9 Chest pain, unspecified (principal); I15.2 Hypertension secondary to endocrine disorders; I13.0 Hypertensive heart and chronic kidney disease with heart failure and stage 1 through stage 4 chronic kidney disease, or unspecified chronic kidney disease; I50.9 Heart failure, unspecified; E11.9 Type 2 diabetes mellitus without complications; E05.90 Thyrotoxicosis, unspecified without thyrotoxic crisis or storm; Z90.710 Acquired absence of both cervix and uterus; Z95.1 Presence of aortocoronary bypass graft; Z88.8 Allergy status to other drugs, medicaments and biological substances; Z91.041 Radiographic dye allergy status; Z79.82 Long term (current) use of aspirin; Z79.899 Other long term (current) drug therapy

== ENCOUNTER → 2022-05-05 | Outpatient (CLI) | payer MEDICARE, BC, OTHER ==
[~2022-05-05] MED LIST changes: +CALC1CAP31 PO; -DULE200A INH; +MOME13HF7 INH; +VALS40TA9 PO
[2022-05-05 17:50] LABS: ALBUMIN 4.2 GM/DL (3.2-5.2); BILIRUBIN,TOTAL 0.5 MG/DL (0.2-1.0); CALCIUM LEVEL 9.7 MG/DL (8.8-10.2); CHOLESTEROL RISK RATIO 2.85 (<5); CREATININE FOR GFR 1.78 MG/DL (0.55-1.30); GLOMERULAR FILTRATION RATE 29.4 (>39); MAGNESIUM LEVEL 2.3 MG/DL (1.8-2.4); POTASSIUM SERUM 3.8 MEQ/L (3.5-5.1); TOTAL PROTEIN 7.5 GM/DL (6.4-8.2); URIC ACID 4.1 MG/DL (2.6-6.0)
[2022-05-05 18:10] LABS: BASO # 0.1 10^3/uL (0.0-0.2); BASO % 0.6 % (0.0-1.0); EOS # 0.3 10^3/uL (0.0-0.5); EOS % 2.3 % (0.0-3.0); HEMATOCRIT 42.4 % (36.0-47.0); HEMOGLOBIN 13.4 g/dl (12.0-15.5); LYMPH # 2.3 10^3/uL (1.5-5.0); MEAN CORPUSCULAR HEMOGLOBIN 30.1 pg (27.0-33.0); MEAN CORPUSCULAR HGB CONC 31.6 g/dl (32.0-36.5); MEAN CORPUSCULAR VOLUME 95.3 fl (80.0-96.0); MONO # 0.9 10^3/uL (0.0-0.8); MONO % 7.2 % (2.0-8.0); NEUTROPHILS % 71.5 % (36.0-66.0); PLATELET COUNT, AUTOMATED 247 10^3/uL (150-450); RED BLOOD COUNT 4.45 10^6/uL (4.00-5.40); WHITE BLOOD COUNT 12.6 10^3/uL (4.0-10.0)
== END ==
LOC: M PLALAB 15:00
PROVIDERS: ATTEND Family Medicine
DX: M10.9 Gout, unspecified (principal); I50.30 Unspecified diastolic (congestive) heart failure; E78.2 Mixed hyperlipidemia; K27.9 Peptic ulcer, site unspecified, unspecified as acute or chronic, without hemorrhage or perforation

== ENCOUNTER → 2022-07-27 | Outpatient (CLI) | payer MEDICARE, BC, OTHER ==
[~2022-07-27] MED LIST changes: -POTA10CA32 PO; +POTA10CA33 PO
[2022-07-27 13:25] LABS: BASO # 0.1 10^3/uL (0.0-0.2); BASO % 0.7 % (0.0-1.0); EOS # 0.6 10^3/uL (0.0-0.5); EOS % 5.1 % (0.0-3.0); HEMOGLOBIN 13.1 g/dl (12.0-15.5); LYMPH # 2.3 10^3/uL (1.5-5.0); LYMPH % 20.1 % (24.0-44.0); MEAN CORPUSCULAR VOLUME 93.8 fl (80.0-96.0); MONO % 8.6 % (2.0-8.0); NEUTROPHILS # 7.4 10^3/uL (1.5-8.5); PLATELET COUNT, AUTOMATED 257 10^3/uL (150-450); RED BLOOD COUNT 4.37 10^6/uL (4.00-5.40); WHITE BLOOD COUNT 11.5 10^3/uL (4.0-10.0)
[2022-07-27 13:56] LABS: ALBUMIN 3.6 G/DL (3.2-5.2); BILIRUBIN,TOTAL 0.6 MG/DL (0.3-1.2); CALCIUM LEVEL 9.4 MG/DL (8.3-10.6); CREATININE FOR GFR 1.67 MG/DL (0.55-1.30); GLOMERULAR FILTRATION RATE 31.6 (>39); POTASSIUM SERUM 4.2 MMOL/L (3.5-5.1); TOTAL PROTEIN 6.4 G/DL (5.7-8.2)
[2022-07-27 13:57] LABS: FERRITIN 138.4 NG/ML (7.3-270.7)
== END ==
LOC: M LAB 11:52
PROVIDERS: ATTEND Family Medicine
DX: I50.30 Unspecified diastolic (congestive) heart failure (principal)

== ENCOUNTER → 2022-11-10 | Outpatient (CLI) | payer MEDICARE, BC, OTHER ==
[2022-11-10 17:23] LABS: BASO # 0.1 10^3/uL (0.0-0.2); BASO % 0.6 % (0.0-1.0); EOS # 0.2 10^3/uL (0.0-0.5); EOS % 2.1 % (0.0-3.0); HEMATOCRIT 38.4 % (36.0-47.0); HEMOGLOBIN 12.2 g/dl (12.0-15.5); LYMPH # 2.1 10^3/uL (1.5-5.0); LYMPH % 18.5 % (24.0-44.0); MEAN CORPUSCULAR HEMOGLOBIN 29.9 pg (27.0-33.0); MEAN CORPUSCULAR HGB CONC 31.8 g/dl (32.0-36.5); MEAN CORPUSCULAR VOLUME 94.1 fl (80.0-96.0); MONO # 0.9 10^3/uL (0.0-0.8); MONO % 8.4 % (2.0-8.0); NEUTROPHILS # 7.8 10^3/uL (1.5-8.5); NEUTROPHILS % 70.1 % (36.0-66.0); PLATELET COUNT, AUTOMATED 237 10^3/uL (150-450); RED BLOOD COUNT 4.08 10^6/uL (4.00-5.40); WHITE BLOOD COUNT 11.2 10^3/uL (4.0-10.0)
[2022-11-10 17:38] LABS: ERYTHROCYTE SEDIMENTATION RATE 48 mm/hr (0-30)
[2022-11-10 17:48] LABS: ALBUMIN 3.9 G/DL (3.2-5.2); ALKALINE PHOSPHATASE 98 U/L (46-116); ALT/SGPT < 9 U/L (7.0-40); AST/SGOT 13 U/L (<34); BILIRUBIN,TOTAL 0.7 MG/DL (0.3-1.2); BLOOD UREA NITROGEN 27 MG/DL (9-23); C REACTIVE PROTEIN QUANTITATIV < 0.40 MG/DL (<1.0); CALCIUM LEVEL 9.9 MG/DL (8.3-10.6); CARBON DIOXIDE LEVEL 30 MMOL/L (20-31); CHLORIDE LEVEL 105 MMOL/L (98-107); CHOLESTEROL LEVEL 180 MG/DL (<200); CHOLESTEROL RISK RATIO 3.34 (<5); CREATININE FOR GFR 1.54 MG/DL (0.55-1.30); GLOMERULAR FILTRATION RATE 34.7 (>39); GLUCOSE, FASTING 96 MG/DL (74-106); HDL CHOLESTEROL 53.8 MG/DL (>40); LDL CHOLESTEROL 78.4 MG/DL (<100); NON-HDL-C 126.2 MG/DL; POTASSIUM SERUM 4.6 MMOL/L (3.5-5.1); SODIUM LEVEL 143 MMOL/L (136-145); TOTAL PROTEIN 6.6 G/DL (5.7-8.2); TRIGLYCERIDES LEVEL 239 MG/DL (<150)
[2022-11-10 17:49] LABS: PTH INTACT 78.8 PG/ML (18.5-88.0)
[2022-11-10 17:50] LABS: FERRITIN 82.2 NG/ML (7.3-270.7); VITAMIN B12 LEVEL 845 PG/ML (211-911)
[2022-11-10 18:02] LABS: HEMOGLOBIN A1c 5.8 % (4.0-6.0)
== END ==
LOC: M PLALAB 15:38
PROVIDERS: ATTEND Family Medicine
DX: M47.816 Spondylosis without myelopathy or radiculopathy, lumbar region (principal); I50.30 Unspecified diastolic (congestive) heart failure; R44.0 Auditory hallucinations; D50.9 Iron deficiency anemia, unspecified; E11.9 Type 2 diabetes mellitus without complications; M50.30 Other cervical disc degeneration, unspecified cervical region; N25.81 Secondary hyperparathyroidism of renal origin

== ENCOUNTER → 2022-12-13 | Outpatient (CLI) | payer MEDICARE, BC, OTHER ==
[2022-12-13 11:09] LABS: BASO % 0.6 % (0.0-1.0); EOS # 0.2 10^3/uL (0.0-0.5); EOS % 2.9 % (0.0-3.0); HEMATOCRIT 35.8 % (36.0-47.0); HEMOGLOBIN 11.3 g/dl (12.0-15.5); LYMPH # 1.3 10^3/uL (1.5-5.0); LYMPH % 20.2 % (24.0-44.0); MEAN CORPUSCULAR HEMOGLOBIN 29.8 pg (27.0-33.0); MEAN CORPUSCULAR HGB CONC 31.6 g/dl (32.0-36.5); MEAN CORPUSCULAR VOLUME 94.5 fl (80.0-96.0); MONO # 1.2 10^3/uL (0.0-0.8); MONO % 18.4 % (2.0-8.0); NEUTROPHILS # 3.6 10^3/uL (1.5-8.5); NEUTROPHILS % 56.8 % (36.0-66.0); PLATELET COUNT, AUTOMATED 217 10^3/uL (150-450); RED BLOOD COUNT 3.79 10^6/uL (4.00-5.40); WHITE BLOOD COUNT 6.3 10^3/uL (4.0-10.0)
[2022-12-13 11:14] LABS: ALBUMIN 3.8 G/DL (3.2-5.2); BILIRUBIN,TOTAL 0.5 MG/DL (0.3-1.2); CALCIUM LEVEL 9.5 MG/DL (8.3-10.6); CREATININE FOR GFR 1.73 MG/DL (0.55-1.30); GLOMERULAR FILTRATION RATE 30.3 (>39); MAGNESIUM LEVEL 1.8 MG/DL (1.8-2.4); POTASSIUM SERUM 3.7 MMOL/L (3.5-5.1); TOTAL PROTEIN 6.2 G/DL (5.7-8.2)
[2022-12-13 11:18] LABS: FERRITIN 71.8 NG/ML (7.3-270.7)
== END ==
LOC: M PLALAB 08:26
PROVIDERS: ATTEND Family Medicine
DX: D50.9 Iron deficiency anemia, unspecified (principal)

== ENCOUNTER → 2023-01-11 | Outpatient (CLI) | payer MEDICARE, BC, OTHER ==
[~2023-01-11] MED LIST changes: -POTA10CA33 PO; +POTA10CA60 PO
[2023-01-11 13:28] LABS: BASO # 0.1 10^3/uL (0.0-0.2); BASO % 0.7 % (0.0-1.0); EOS # 0.3 10^3/uL (0.0-0.5); EOS % 2.7 % (0.0-3.0); HEMATOCRIT 31.9 % (36.0-47.0); HEMOGLOBIN 9.8 g/dl (12.0-15.5); LYMPH # 1.8 10^3/uL (1.5-5.0); LYMPH % 14.5 % (24.0-44.0); MEAN CORPUSCULAR HEMOGLOBIN 30.2 pg (27.0-33.0); MEAN CORPUSCULAR HGB CONC 30.7 g/dl (32.0-36.5); MEAN CORPUSCULAR VOLUME 98.5 fl (80.0-96.0); MONO # 1.3 10^3/uL (0.0-0.8); MONO % 10.9 % (2.0-8.0); NEUTROPHILS # 8.7 10^3/uL (1.5-8.5); NEUTROPHILS % 70.3 % (36.0-66.0); PLATELET COUNT, AUTOMATED 323 10^3/uL (150-450); RED BLOOD COUNT 3.24 10^6/uL (4.00-5.40); WHITE BLOOD COUNT 12.3 10^3/uL (4.0-10.0)
[2023-01-11 13:39] LABS: INR 1.06
[2023-01-11 13:40] LABS: ERYTHROCYTE SEDIMENTATION RATE 95 mm/hr (0-30); PARTIAL THROMBOPLASTIN TIME 30.9 SECONDS (24.8-34.2)
[2023-01-11 13:55] LABS: C REACTIVE PROTEIN QUANTITATIV 1.5 MG/DL (<1.0)
[2023-01-11 13:57] LABS: ALBUMIN 3.1 G/DL (3.2-5.2); BILIRUBIN,TOTAL 0.6 MG/DL (0.3-1.2); CALCIUM LEVEL 10.9 MG/DL (8.3-10.6); CREATININE FOR GFR 2.5 MG/DL (0.55-1.30); GLOMERULAR FILTRATION RATE 19.8 (>39); POTASSIUM SERUM 5.1 MMOL/L (3.5-5.1); TOTAL PROTEIN 6.7 G/DL (5.7-8.2)
[2023-01-11 13:59] LABS: FERRITIN 236.2 NG/ML (7.3-270.7)
[2023-01-11 14:13] LABS: CA19-9 TUMOR MARKER,CARBOHYDRA 150.7 U/ML (<35.0)
== END ==
LOC: M PLALAB 11:00
PROVIDERS: ATTEND Family Medicine
DX: J18.9 Pneumonia, unspecified organism (principal); Z79.01 Long term (current) use of anticoagulants; D50.9 Iron deficiency anemia, unspecified

== ENCOUNTER → 2023-02-01 | Outpatient (CLI) | payer MEDICARE, BC, OTHER ==
[2023-02-01 12:14] LABS: BASO # 0.1 10^3/uL (0.0-0.2); BASO % 0.6 % (0.0-1.0); EOS # 0.4 10^3/uL (0.0-0.5); HEMATOCRIT 33.7 % (36.0-47.0); HEMOGLOBIN 10.3 g/dl (12.0-15.5); LYMPH # 1.7 10^3/uL (1.5-5.0); LYMPH % 14.8 % (24.0-44.0); MEAN CORPUSCULAR HGB CONC 30.6 g/dl (32.0-36.5); MEAN CORPUSCULAR VOLUME 94.9 fl (80.0-96.0); MONO # 0.9 10^3/uL (0.0-0.8); MONO % 7.3 % (2.0-8.0); NEUTROPHILS # 8.7 10^3/uL (1.5-8.5); PLATELET COUNT, AUTOMATED 296 10^3/uL (150-450); RED BLOOD COUNT 3.55 10^6/uL (4.00-5.40); WHITE BLOOD COUNT 11.7 10^3/uL (4.0-10.0)
[2023-02-01 12:47] LABS: ALBUMIN 2.9 G/DL (3.2-5.2); ALKALINE PHOSPHATASE 129 U/L (46-116); ALT/SGPT < 9 U/L (7.0-40); AST/SGOT 19 U/L (<34); BILIRUBIN,TOTAL 0.5 MG/DL (0.3-1.2); BLOOD UREA NITROGEN 25 MG/DL (9-23); CALCIUM LEVEL 8.9 MG/DL (8.3-10.6); CARBON DIOXIDE LEVEL 27 MMOL/L (20-31); CHLORIDE LEVEL 107 MMOL/L (98-107); CREATININE FOR GFR 1.23 MG/DL (0.55-1.30); GLUCOSE, FASTING 108 MG/DL (74-106); POTASSIUM SERUM 3.6 MMOL/L (3.5-5.1); SODIUM LEVEL 143 MMOL/L (136-145)
[2023-02-01 12:49] LABS: PTH INTACT 79.7 PG/ML (18.5-88.0)
[2023-02-01 12:51] LABS: FERRITIN 55.7 NG/ML (7.3-270.7)
== END ==
LOC: M RAD 11:26
PROVIDERS: ATTEND Family Medicine
DX: R91.8 Other nonspecific abnormal finding of lung field (principal); D50.9 Iron deficiency anemia, unspecified

== ENCOUNTER 2023-02-12 11:53 | Outpatient (CLI) | payer MEDICARE, BC, OTHER ==
[~2023-02-12] VITALS: Ht 154.9 cm; Wt 55.3 kg
[~2023-02-12 11:53] MED LIST changes: +ALBUTEROL SULFATE 2.5MG/0.5ML INH NEB SOLN INH PRN; +EPINEPHrine INJ 1 MG/ML 1ML AMP IM PRN; +diphenhydrAMINE 50MG/ML VIAL IV PRN; +methylPREDNISolone 125MG 2ML VIAL IV PRN
[2023-02-12] MEDS ORDERED: NS 1,000 ML IV SCH (12:30)
[2023-02-12] MEDS ORDERED: FERRIC CARBOXYMALTOSE INJ 750 MG in NS 250 ML (>50kg) IV ONE ×3 (12:30)
[2023-02-12 12:35] VITALS: BP 142/67; O2SAT 98
== END 2023-02-12 13:45 | disposition home or self-care (01) ==
LOC: M INFU 11:53
PROVIDERS: ATTEND Family Medicine
DX: D50.9 Iron deficiency anemia, unspecified (principal); Z88.8 Allergy status to other drugs, medicaments and biological substances; Z88.3 Allergy status to other anti-infective agents
CPT/HCPCS: 96365; J1439

== ENCOUNTER → 2023-03-21 | Outpatient (CLI) | payer MEDICARE, BC, OTHER ==
[~2023-03-21] MED LIST changes: -ALBUTEROL SULFATE 2.5MG/0.5ML INH NEB SOLN INH PRN; -EPINEPHrine INJ 1 MG/ML 1ML AMP IM PRN; -diphenhydrAMINE 50MG/ML VIAL IV PRN; -methylPREDNISolone 125MG 2ML VIAL IV PRN
[2023-03-21 09:48] LABS: BASO # 0.1 10^3/uL (0.0-0.2); BASO % 0.5 % (0.0-1.0); EOS # 0.4 10^3/uL (0.0-0.5); EOS % 3.7 % (0.0-3.0); HEMATOCRIT 40.9 % (36.0-47.0); HEMOGLOBIN 12.5 g/dl (12.0-15.5); LYMPH # 1.7 10^3/uL (1.5-5.0); LYMPH % 16.9 % (24.0-44.0); MEAN CORPUSCULAR HEMOGLOBIN 29.1 pg (27.0-33.0); MEAN CORPUSCULAR HGB CONC 30.6 g/dl (32.0-36.5); MEAN CORPUSCULAR VOLUME 95.1 fl (80.0-96.0); MONO # 0.9 10^3/uL (0.0-0.8); NEUTROPHILS # 6.9 10^3/uL (1.5-8.5); NEUTROPHILS % 69.5 % (36.0-66.0); PLATELET COUNT, AUTOMATED 206 10^3/uL (150-450); WHITE BLOOD COUNT 9.9 10^3/uL (4.0-10.0)
[2023-03-21 10:07] LABS: HEMOGLOBIN A1c 5.7 % (4.0-6.0)
[2023-03-21 10:17] LABS: URIC ACID 4.6 MG/DL (3.1-7.8)
[2023-03-21 10:19] LABS: ALBUMIN 3.4 G/DL (3.2-5.2); BILIRUBIN,TOTAL 0.8 MG/DL (0.3-1.2); CALCIUM LEVEL 9.8 MG/DL (8.3-10.6); CREATININE FOR GFR 1.41 MG/DL (0.55-1.30); GLOMERULAR FILTRATION RATE 38.4 (>39); POTASSIUM SERUM 4.5 MMOL/L (3.5-5.1); TOTAL PROTEIN 6.3 G/DL (5.7-8.2)
[2023-03-21 10:20] LABS: FREE T4 0.98 NG/DL (0.89-1.76); THYROID STIMULATING HORMONE 2.845 uIU/ML (0.55-4.78)
[2023-03-21 10:21] LABS: FERRITIN 245.7 NG/ML (7.3-270.7)
[2023-03-21 10:28] LABS: PTH INTACT 84.5 PG/ML (18.5-88.0)
== END ==
LOC: M RAD 09:00
PROVIDERS: ATTEND Family Medicine
DX: Q61.02 Congenital multiple renal cysts (principal); N26.1 Atrophy of kidney (terminal); D50.9 Iron deficiency anemia, unspecified; I50.30 Unspecified diastolic (congestive) heart failure; E11.9 Type 2 diabetes mellitus without complications; I70.1 Atherosclerosis of renal artery

== ENCOUNTER → 2023-03-26 | Outpatient (REF) | payer MEDICARE, OTHER | LOC: M SFHCPLAZ 13:42 | PROVIDERS: ATTEND Family Medicine | DX: D50.9 Iron deficiency anemia, unspecified (principal); N18.32 Chronic kidney disease, stage 3b; I48.0 Paroxysmal atrial fibrillation ==

== ENCOUNTER → 2023-06-01 | Outpatient (CLI) | payer MEDICARE, OTHER | LOC: M WHC 13:32 | PROVIDERS: ATTEND Family Medicine | DX: Z12.39 Encounter for other screening for malignant neoplasm of breast (principal); M85.80 Other specified disorders of bone density and structure, unspecified site ==

== ENCOUNTER → 2023-06-01 | Outpatient (CLI) | payer MEDICARE, BC, OTHER ==
[2023-06-01 16:03] LABS: BASO # 0.1 10^3/uL (0.0-0.2); BASO % 0.5 % (0.0-1.0); EOS # 0.4 10^3/uL (0.0-0.5); EOS % 3.2 % (0.0-3.0); HEMATOCRIT 41.9 % (36.0-47.0); HEMOGLOBIN 13.1 g/dl (12.0-15.5); LYMPH # 2.1 10^3/uL (1.5-5.0); LYMPH % 18.6 % (24.0-44.0); MEAN CORPUSCULAR HGB CONC 31.3 g/dl (32.0-36.5); MEAN CORPUSCULAR VOLUME 92.7 fl (80.0-96.0); MONO # 0.9 10^3/uL (0.0-0.8); MONO % 7.9 % (2.0-8.0); NEUTROPHILS # 7.8 10^3/uL (1.5-8.5); NEUTROPHILS % 69.5 % (36.0-66.0); PLATELET COUNT, AUTOMATED 234 10^3/uL (150-450); RED BLOOD COUNT 4.52 10^6/uL (4.00-5.40); WHITE BLOOD COUNT 11.2 10^3/uL (4.0-10.0)
[2023-06-01 16:37] LABS: ALBUMIN 3.7 G/DL (3.2-5.2); BILIRUBIN,TOTAL 0.6 MG/DL (0.3-1.2); CALCIUM LEVEL 9.4 MG/DL (8.3-10.6); CHOLESTEROL RISK RATIO 3.07 (<5); CREATININE FOR GFR 1.42 MG/DL (0.55-1.30); FERRITIN 104.2 NG/ML (7.3-270.7); GLOMERULAR FILTRATION RATE 38.1 (>39); HDL CHOLESTEROL 53.6 MG/DL (>40); LDL CHOLESTEROL 66.8 MG/DL (<100); NON-HDL-C 111.4 MG/DL; POTASSIUM SERUM 4.2 MMOL/L (3.5-5.1); TOTAL PROTEIN 6.5 G/DL (5.7-8.2)
== END ==
LOC: M PLALAB 14:15
PROVIDERS: ATTEND Family Medicine
DX: D50.9 Iron deficiency anemia, unspecified (principal); N18.32 Chronic kidney disease, stage 3b; I48.0 Paroxysmal atrial fibrillation; I50.32 Chronic diastolic (congestive) heart failure

== ENCOUNTER → 2023-09-29 | Outpatient (REF) | payer MEDICARE, OTHER, BC | LOC: M LAB REF 16:20 | PROVIDERS: ATTEND Family Medicine | DX: H10.403 Unspecified chronic conjunctivitis, bilateral (principal) ==

== ENCOUNTER → 2023-11-13 | Outpatient (CLI) | payer MEDICARE, BC | LOC: M PLAIMG 15:14 | PROVIDERS: ATTEND Family Medicine | DX: M47.814 Spondylosis without myelopathy or radiculopathy, thoracic region (principal); M51.36 Other intervertebral disc degeneration, lumbar region; M50.321 Other cervical disc degeneration at C4-C5 level; M50.322 Other cervical disc degeneration at C5-C6 level; M50.323 Other cervical disc degeneration at C6-C7 level; J44.9 Chronic obstructive pulmonary disease, unspecified; M54.10 Radiculopathy, site unspecified ==

== ENCOUNTER → 2023-11-15 | Outpatient (CLI) | payer MEDICARE, BC | LOC: M RAD 08:32 | PROVIDERS: ATTEND Family Medicine | DX: R91.8 Other nonspecific abnormal finding of lung field (principal) ==

== ENCOUNTER → 2023-12-06 | Outpatient (REF) | payer MEDICARE, BC ==
[~2023-12-06] MED LIST changes: -POTA10CA60 PO; +POTA10CA70 PO
== END ==
LOC: M SFHCPLAZ 14:20
PROVIDERS: ATTEND Family Medicine
DX: I50.32 Chronic diastolic (congestive) heart failure (principal); I48.0 Paroxysmal atrial fibrillation; N18.32 Chronic kidney disease, stage 3b; M47.812 Spondylosis without myelopathy or radiculopathy, cervical region; M35.3 Polymyalgia rheumatica

== ENCOUNTER → 2023-12-26 | Outpatient (CLI) | payer MEDICARE, BC ==
[2023-12-26 15:21] LABS: ALBUMIN 3.4 G/DL (3.2-5.2); ALKALINE PHOSPHATASE 105 U/L (46-116); ALT/SGPT 18 U/L (7.0-40); AST/SGOT < 8 U/L (<34); BILIRUBIN,TOTAL 0.7 MG/DL (0.3-1.2); BLOOD UREA NITROGEN 33 MG/DL (9-23); CALCIUM LEVEL 9.2 MG/DL (8.3-10.6); CARBON DIOXIDE LEVEL 28 MMOL/L (20-31); CHLORIDE LEVEL 104 MMOL/L (98-107); CREATININE FOR GFR 1.37 MG/DL (0.55-1.30); GLOMERULAR FILTRATION RATE 39.6 (>39); GLUCOSE, FASTING 99 MG/DL (74-106); POTASSIUM SERUM 4.1 MMOL/L (3.5-5.1); SODIUM LEVEL 139 MMOL/L (136-145); TOTAL PROTEIN 6.4 G/DL (5.7-8.2)
[2023-12-26 15:23] LABS: BASO % 0.2 % (0.0-1.0); EOS # 0.1 10^3/uL (0.0-0.5); EOS % 0.4 % (0.0-3.0); HEMATOCRIT 38.9 % (36.0-47.0); HEMOGLOBIN 12.3 g/dl (12.0-15.5); LYMPH % 12.5 % (24.0-44.0); MEAN CORPUSCULAR HEMOGLOBIN 28.7 pg (27.0-33.0); MEAN CORPUSCULAR HGB CONC 31.6 g/dl (32.0-36.5); MEAN CORPUSCULAR VOLUME 90.7 fl (80.0-96.0); MONO # 1.1 10^3/uL (0.0-0.8); NEUTROPHILS # 12.5 10^3/uL (1.5-8.5); NEUTROPHILS % 78.3 % (36.0-66.0); PLATELET COUNT, AUTOMATED 234 10^3/uL (150-450); RED BLOOD COUNT 4.29 10^6/uL (4.00-5.40)
[2023-12-26 15:24] LABS: FERRITIN 179.4 NG/ML (7.3-270.7)
[2023-12-26 15:42] LABS: ERYTHROCYTE SEDIMENTATION RATE 53 mm/hr (0-30)
== END ==
LOC: M PLALAB 13:16
PROVIDERS: ATTEND Family Medicine
DX: I50.32 Chronic diastolic (congestive) heart failure (principal)

== ENCOUNTER → 2024-01-08 | Outpatient (CLI) | payer MEDICARE, BC | LOC: M PLAIMG 14:11 | PROVIDERS: ATTEND Family Medicine | DX: M17.0 Bilateral primary osteoarthritis of knee (principal) ==

== ENCOUNTER → 2024-01-17 | Outpatient (REF) | payer MEDICARE, BC | LOC: M SFHCPLAZ 15:58 | PROVIDERS: ATTEND Family Medicine | DX: I50.32 Chronic diastolic (congestive) heart failure (principal); I48.0 Paroxysmal atrial fibrillation; N18.32 Chronic kidney disease, stage 3b; M47.812 Spondylosis without myelopathy or radiculopathy, cervical region; M35.3 Polymyalgia rheumatica; M11.20 Other chondrocalcinosis, unspecified site ==

== ENCOUNTER → 2024-01-29 | Outpatient (REF) | payer MEDICARE, BC | LOC: M SFHCPLAZ 15:52 | PROVIDERS: ATTEND Family Medicine | DX: I50.32 Chronic diastolic (congestive) heart failure (principal); I48.0 Paroxysmal atrial fibrillation; N18.32 Chronic kidney disease, stage 3b; M47.812 Spondylosis without myelopathy or radiculopathy, cervical region; M35.3 Polymyalgia rheumatica; M11.20 Other chondrocalcinosis, unspecified site ==

== ENCOUNTER → 2024-01-29 | Outpatient (CLI) | payer MEDICARE, BC ==
[2024-01-29 13:53] LABS: BASO % 0.2 % (0.0-1.0); EOS % 0.1 % (0.0-3.0); HEMATOCRIT 38.8 % (36.0-47.0); HEMOGLOBIN 12.4 g/dl (12.0-15.5); LYMPH # 1.2 10^3/uL (1.5-5.0); LYMPH % 10.1 % (24.0-44.0); MEAN CORPUSCULAR VOLUME 93.7 fl (80.0-96.0); MONO # 0.7 10^3/uL (0.0-0.8); MONO % 6.2 % (2.0-8.0); NEUTROPHILS # 9.6 10^3/uL (1.5-8.5); NEUTROPHILS % 81.7 % (36.0-66.0); PLATELET COUNT, AUTOMATED 159 10^3/uL (150-450); RED BLOOD COUNT 4.14 10^6/uL (4.00-5.40); WHITE BLOOD COUNT 11.8 10^3/uL (4.0-10.0)
[2024-01-29 14:00] LABS: C REACTIVE PROTEIN QUANTITATIV < 0.40 MG/DL (<1.0)
[2024-01-29 14:01] LABS: ALBUMIN 3.5 G/DL (3.2-5.2); ALKALINE PHOSPHATASE 89 U/L (46-116); ALT/SGPT 24 U/L (7.0-40); AST/SGOT < 8 U/L (<34); BILIRUBIN,TOTAL 0.9 MG/DL (0.3-1.2); BLOOD UREA NITROGEN 39 MG/DL (9-23); CALCIUM LEVEL 9.3 MG/DL (8.3-10.6); CARBON DIOXIDE LEVEL 28 MMOL/L (20-31); CHLORIDE LEVEL 103 MMOL/L (98-107); CREATININE FOR GFR 1.58 MG/DL (0.55-1.30); GLOMERULAR FILTRATION RATE 33.6 (>39); GLUCOSE, FASTING 116 MG/DL (74-106); POTASSIUM SERUM 4.5 MMOL/L (3.5-5.1); PTH INTACT 179.6 PG/ML (18.5-88.0); SODIUM LEVEL 138 MMOL/L (136-145)
[2024-01-29 14:03] LABS: FERRITIN 170.8 NG/ML (7.3-270.7)
[2024-01-29 14:06] LABS: ERYTHROCYTE SEDIMENTATION RATE 22 mm/hr (0-30)
== END ==
LOC: M PLALAB 10:16
PROVIDERS: ATTEND Family Medicine
DX: I50.32 Chronic diastolic (congestive) heart failure (principal)

== ENCOUNTER → 2024-02-21 | Outpatient (REF) | payer MEDICARE, BC | LOC: M SFHCPLAZ 14:45 | PROVIDERS: ATTEND Family Medicine | DX: I50.32 Chronic diastolic (congestive) heart failure (principal); I48.0 Paroxysmal atrial fibrillation; N18.32 Chronic kidney disease, stage 3b; M47.812 Spondylosis without myelopathy or radiculopathy, cervical region; M35.3 Polymyalgia rheumatica; M11.20 Other chondrocalcinosis, unspecified site ==

== ENCOUNTER → 2024-02-25 | Outpatient (REF) | payer MEDICARE, BC | LOC: M SFHCPLAZ 10:11 | PROVIDERS: ATTEND Family Medicine | DX: I50.32 Chronic diastolic (congestive) heart failure (principal); I48.0 Paroxysmal atrial fibrillation; N18.32 Chronic kidney disease, stage 3b; M47.812 Spondylosis without myelopathy or radiculopathy, cervical region; M35.3 Polymyalgia rheumatica; M11.20 Other chondrocalcinosis, unspecified site ==

== ENCOUNTER → 2024-03-20 | Outpatient (REF) | payer MEDICARE, BC | LOC: M SFHCPLAZ 15:00 | PROVIDERS: ATTEND Family Medicine | DX: I50.32 Chronic diastolic (congestive) heart failure (principal); I48.0 Paroxysmal atrial fibrillation; N18.32 Chronic kidney disease, stage 3b; M47.812 Spondylosis without myelopathy or radiculopathy, cervical region; M35.3 Polymyalgia rheumatica; M11.20 Other chondrocalcinosis, unspecified site; Z53.9 Procedure and treatment not carried out, unspecified reason ==

== ENCOUNTER 2024-04-07 13:04 | Inpatient (IN) | payer MEDICARE, BC ==
[~2024-04-07] VITALS: Ht 165.1 cm; Wt 59.5 kg
[~2024-04-07 13:04] MED LIST changes: -METO1TAB32; +METO1TAB32 PO
[2024-04-07 14:51] LABS: BASO # 0.1 10^3/uL (0.0-0.2); BASO % 0.3 % (0.0-1.0); EOS % 0.1 % (0.0-3.0); HEMATOCRIT 35.9 % (36.0-47.0); HEMOGLOBIN 11.7 g/dl (12.0-15.5); LYMPH # 1.1 10^3/uL (1.5-5.0); MEAN CORPUSCULAR HEMOGLOBIN 32.1 pg (27.0-33.0); MEAN CORPUSCULAR HGB CONC 32.6 g/dl (32.0-36.5); MEAN CORPUSCULAR VOLUME 98.4 fl (80.0-96.0); MONO # 1.7 10^3/uL (0.0-0.8); MONO % 6.3 % (2.0-8.0); NEUTROPHILS # 23.1 10^3/uL (1.5-8.5); NEUTROPHILS % 87.7 % (36.0-66.0); PLATELET COUNT, AUTOMATED 186 10^3/uL (150-450); RED BLOOD COUNT 3.65 10^6/uL (4.00-5.40); WHITE BLOOD COUNT 26.3 10^3/uL (4.0-10.0)
[2024-04-07 15:05] LABS: INR 1.56; PROTHROMBIN TIME 18.1 SECONDS (12.5-14.5)
[2024-04-07 15:16] LABS: CK-MB VALUE MASS 10.1 NG/ML (<3.6)
[2024-04-07 15:18] LABS: MB/CK RELATIVE INDEX 6.23 (< OR =4)
[2024-04-07 15:25] LABS: CALCIUM LEVEL 10.5 MG/DL (8.3-10.6); CREATININE FOR GFR 5.93 MG/DL (0.55-1.30); GLOMERULAR FILTRATION RATE 7.3 (>39); POTASSIUM SERUM 6.2 MMOL/L (3.5-5.1)
[2024-04-07 16:07] LABS: CK-MB VALUE MASS 10.9 NG/ML (<3.6)
[2024-04-07 16:07] LABS: ALBUMIN 3.2 G/DL (3.2-5.2); BILIRUBIN,DIRECT 0.2 MG/DL (<0.4); BILIRUBIN,TOTAL 0.5 MG/DL (0.3-1.2)
[2024-04-07 16:09] LABS: FREE T4 0.81 NG/DL (0.89-1.76)
[2024-04-07 16:10] LABS: THYROID STIMULATING HORMONE 1.233 uIU/ML (0.55-4.78)
[2024-04-07] MEDS: CALCIUM GLUCONATE 1,000 MG in D5W MINI-BAG PLUS 100 ML IV ONE (16:10)
[2024-04-07] MEDS: DEXTROSE 50% 50ML SYRINGE IV STA (16:10)
[2024-04-07 16:11] LABS: MB/CK RELATIVE INDEX 6.94 (< OR =4)
[2024-04-07] MEDS: ACETAMINOPHEN TAB 650MG DOSE (2X325MG) PO ONE (16:33)
[2024-04-07] MEDS: NS 1,640 ML in IV 1 EA IV ONE (16:33)
[2024-04-07] MEDS: PIPERACILLIN/TAZOBACTAM SOD 2.25 GM in D5W MINI-BAG PLUS 50 ML IV ONE (16:50)
[2024-04-07] MEDS: HYDROCORTISONE 100MG/2ML VIAL IV ONE (17:38)
[2024-04-07] MEDS: SODIUM BICARBONATE 150 MEQ in D5W 1,000 ML IV SCH (17:53)
[2024-04-07] MEDS: HumuLIN R (REGULAR) INSULIN (NovoLIN R) **100U/ML** PER UNIT IV ONE (17:58)
[2024-04-07] MEDS: PANTOPRAZOLE 40MG VIAL IV ONE (18:30)
[2024-04-07] MEDS: ACETAMINOPHEN *IV* 1,000 MG in IV 1 EA IV ONE (18:30)
[2024-04-07 18:34] LABS: ABG BASE EXCESS -17.1 (-2.0-2.0); ABG HCO3 9.1 MMOL/L (22.0-26.0); ABG O2 SATURATION 96.5 % (95.0-99.0); ABG PARTIAL PRESSURE CO2 23.2 mmHg (35.0-45.0); ABG PARTIAL PRESSURE O2 96.6 mmHg (75.0-100.0); ABG STANDARD HCO3 11.4 MMOL/L. (22.0-26.0); ABG TOTAL CO2 9.8 MMOL/L (23.0-31.0)
[2024-04-07 18:35] LABS: ABG pH (ARTERIAL) 7.212 UNITS (7.350-7.450)
[2024-04-07] MEDS: NS 1,000 ML IV SCH (18:35)
[2024-04-07] MEDS: RANOLAZINE 500MG ER TAB PO ONE (18:38)
[2024-04-07] MEDS ORDERED: ROSU20TA61 PO (18:54)
[2024-04-07] MEDS ORDERED: NITR0.4S14 SL (18:54)
[2024-04-07] MEDS ORDERED: PANT40TA29 PO (18:54)
[2024-04-07] MEDS ORDERED: ALLO100T PO (18:54)
[2024-04-07] MEDS ORDERED: PRED1TABL PO (18:54)
[2024-04-07] MEDS ORDERED: VALA1TAB5 PO (18:54)
[2024-04-07] MEDS ORDERED: CO Q200C10 PO (18:54)
[2024-04-07] MEDS ORDERED: PRED5TA PO (18:54)
[2024-04-07] MEDS ORDERED: JARD1TAB PO (18:58)
[2024-04-07] MEDS ORDERED: MOME50SP2 NARES (19:04)
[2024-04-07] MEDS ORDERED: ENTR1TAB PO (19:04)
[2024-04-07] MEDS ORDERED: TRAM50TA2 PO (19:05)
[2024-04-07] MEDS ORDERED: SIMETHICONE 80MG CHEW TAB PO PRN (19:05)
[2024-04-07] MEDS ORDERED: HOME MED LIST COMPLETE! XX SCH ×2 (19:05)
[2024-04-07] MEDS ORDERED: HEPARIN SOD (PORCINE) 5000UNITS/ML 1ML VIAL/SYRINGE IV PRN (19:05)
[2024-04-07] MEDS: NITROGLYCERIN 0.4MG SUBL TABLET SL STA (19:22)
[2024-04-07] MEDS ORDERED: DEXTROSE 50% 50ML SYRINGE IV PRN (20:00)
[2024-04-07] MEDS ORDERED: GLUCAGON INJ 1MG VIAL SC PRN (20:00)
[2024-04-07] MEDS ORDERED: GLUCOSE 4 GM CHEW PO PRN (20:00)
[2024-04-07] MEDS: INSULIN LISPRO (NovoLOG) PER UNIT SC SCH (20:14)
[2024-04-07] MEDS: PANTOPRAZOLE 40MG VIAL IV SCH (20:52)
[2024-04-07] MEDS: SUCRALFATE SUSP 1GM/10ML UD PO SCH (20:52)
[2024-04-07] MEDS: ROSUVASTATIN 10 MG TAB (CRESTOR) PO SCH (20:53)
[2024-04-07] MEDS: HEPARIN SOD (PORCINE) 5000UNITS/ML 1ML VIAL/SYRINGE IV ONE (20:56)
[2024-04-07] MEDS: HEPARIN DRIP 25,000 UNITS in IV 1 EA IV SCH (20:57)
[2024-04-07 21:37] LABS: CREATININE FOR GFR 5.26 MG/DL (0.55-1.30); GLOMERULAR FILTRATION RATE 8.4 (>39); POTASSIUM SERUM 5.5 MMOL/L (3.5-5.1)
[2024-04-07 22:40] VITALS: BP 113/55; TEMP 97.5; O2SAT 92
[2024-04-07 22:45] VITALS: PULSE 76; O2SAT 94
[2024-04-07] MEDS: FUROSEMIDE 100MG/10ML VIAL IV ONE (23:00)
[2024-04-08] VITALS (8 sets, daily range): BP systolic 97–116; BP diastolic 50–58; PULSE 76; TEMP 98.1–98.2; O2SAT 94–100
[2024-04-08] MEDS: IPRATROPIUM 0.5MG/ALBUTEROL 2.5MG INH SOL UD 3ML (DUONEB) NEB ONE (00:15)
[2024-04-08 00:43] LABS: CK-MB VALUE MASS 12.2 NG/ML (<3.6)
[2024-04-08 00:49] LABS: MB/CK RELATIVE INDEX 6.25 (< OR =4)
[2024-04-08 01:21] LABS: IONIZED CALCIUM 4.8 MG/DL (4.5-5.3)
[2024-04-08] MEDS: HYDROCORTISONE 100MG/2ML VIAL IV SCH (01:31)
[2024-04-08] MEDS: PIPERACILLIN/TAZOBACTAM SOD 2.25 GM in D5W MINI-BAG PLUS 50 ML IV SCH (01:31)
[2024-04-08] MEDS: RAMELTEON 8 MG TAB (ROZEREM) PO ONE (01:48)
[2024-04-08 02:01] LABS: HEMATOCRIT 27.6 % (36.0-47.0); HEMOGLOBIN 9.3 g/dl (12.0-15.5)
[2024-04-08 02:43] LABS: C REACTIVE PROTEIN QUANTITATIV 2.5 MG/DL (<1.0); MAGNESIUM LEVEL 2.1 MG/DL (1.8-2.4); POTASSIUM SERUM 4.4 MMOL/L (3.5-5.1)
[2024-04-08 02:44] LABS: CK-MB VALUE MASS 16.8 NG/ML (<3.6)
[2024-04-08 02:52] LABS: PROCALCITONIN 0.37 ng/ml
[2024-04-08] MEDS: SODIUM BICARBONATE 150 MEQ in D5W 1,000 ML IV SCH (06:21)
[2024-04-08 07:42] LABS: CK-MB VALUE MASS 19.5 NG/ML (<3.6)
[2024-04-08 07:44] LABS: CHOLESTEROL RISK RATIO 2.31 (<5); HDL CHOLESTEROL 35.8 MG/DL (>40); LDL CHOLESTEROL 13.8 MG/DL (<100); MAGNESIUM LEVEL 2.1 MG/DL (1.8-2.4); MB/CK RELATIVE INDEX 9.51 (< OR =4); NON-HDL-C 47.2 MG/DL; POTASSIUM SERUM 4.6 MMOL/L (3.5-5.1)
[2024-04-08 07:51] LABS: INR 1.58; PARTIAL THROMBOPLASTIN TIME 51.1 SECONDS (24.8-34.2); PROTHROMBIN TIME 18.4 SECONDS (12.5-14.5)
[2024-04-08 08:11] LABS: HEMOGLOBIN A1c 7.2 % (4.0-6.0)
[2024-04-08] MEDS: INSULIN LISPRO (NovoLOG) PER UNIT SC SCH (08:50)
[2024-04-08] MEDS: CALCITRIOL 0.25 MCG CAP (S0169) PO SCH (08:51)
[2024-04-08] MEDS: RANOLAZINE 500MG ER TAB PO SCH (08:51)
[2024-04-08] MEDS: allopurinoL 100 MG TAB PO SCH (08:52)
[2024-04-08] MEDS: CYANOCOBALAMIN 500 MCG TAB PO SCH (08:52)
[2024-04-08] MEDS: CO-ENZYME Q10 50 MG CAP PO SCH (08:52)
[2024-04-08] MEDS: ASPIRIN 81MG CHEW TABLET PO SCH (08:53)
[2024-04-08] MEDS: CLOPIDOGREL 75 MG TAB PO SCH (08:53)
[2024-04-08 14:35] LABS: IONIZED CALCIUM 4.6 MG/DL (4.5-5.3)
[2024-04-08 14:39] LABS: HEMATOCRIT 26.7 % (36.0-47.0); MEAN CORPUSCULAR HEMOGLOBIN 31.9 pg (27.0-33.0); MEAN CORPUSCULAR HGB CONC 33.7 g/dl (32.0-36.5); MEAN CORPUSCULAR VOLUME 94.7 fl (80.0-96.0); PLATELET COUNT, AUTOMATED 121 10^3/uL (150-450); RED BLOOD COUNT 2.82 10^6/uL (4.00-5.40); WHITE BLOOD COUNT 13.4 10^3/uL (4.0-10.0)
[2024-04-08 15:06] LABS: CALCIUM LEVEL 9.1 MG/DL (8.3-10.6); CREATININE FOR GFR 4.92 MG/DL (0.55-1.30); GLOMERULAR FILTRATION RATE 9.1 (>39); POTASSIUM SERUM 4.4 MMOL/L (3.5-5.1)
[2024-04-08 15:09] LABS: ALBUMIN 2.3 G/DL (3.2-5.2); CALCIUM LEVEL 9.2 MG/DL (8.3-10.6); CREATININE FOR GFR 4.94 MG/DL (0.55-1.30); PHOSPHORUS LEVEL 5.3 MG/DL (2.4-5.1); POTASSIUM SERUM 4.4 MMOL/L (3.5-5.1)
[2024-04-09] VITALS (7 sets, daily range): BP systolic 90–113; BP diastolic 51–61; TEMP 96.7–98.2; O2SAT 93–100
[2024-04-09 04:41] LABS: INR 1.81; PARTIAL THROMBOPLASTIN TIME 116.2 SECONDS (24.8-34.2); PROTHROMBIN TIME 20.4 SECONDS (12.5-14.5)
[2024-04-09 05:24] LABS: CREATININE FOR GFR 4.7 MG/DL (0.55-1.30); GLOMERULAR FILTRATION RATE 9.5 (>39); POTASSIUM SERUM 3.5 MMOL/L (3.5-5.1)
[2024-04-09] MEDS ORDERED: POTASSIUM CHLORIDE 10MEQ SR TABLET PO ONE (06:55)
[2024-04-09] MEDS: POTASSIUM CHLORIDE 10MEQ SR TABLET PO ONE ×2 (08:04)
[2024-04-09] MEDS: ALPRAZolam 0.25 MG TAB PO ONE (08:30)
[2024-04-09 08:51] LABS: MAGNESIUM LEVEL 1.9 MG/DL (1.8-2.4)
[2024-04-09 09:46] LABS: HEMATOCRIT 26.4 % (36.0-47.0); HEMOGLOBIN 9.1 g/dl (12.0-15.5); MEAN CORPUSCULAR HEMOGLOBIN 31.8 pg (27.0-33.0); MEAN CORPUSCULAR HGB CONC 34.5 g/dl (32.0-36.5); MEAN CORPUSCULAR VOLUME 92.3 fl (80.0-96.0); PLATELET COUNT, AUTOMATED 111 10^3/uL (150-450); RED BLOOD COUNT 2.86 10^6/uL (4.00-5.40); WHITE BLOOD COUNT 11.7 10^3/uL (4.0-10.0)
[2024-04-09 10:56] LABS: INR 1.74; PARTIAL THROMBOPLASTIN TIME 78.6 SECONDS (24.8-34.2); PROTHROMBIN TIME 19.8 SECONDS (12.5-14.5)
[2024-04-09] MEDS: METOPROLOL SUCC *XL* 12.5MG PER 1/2 TAB (TopROL *XL*) PO SCH (11:11)
[2024-04-10] MEDS: RAMELTEON 8 MG TAB (ROZEREM) PO ONE (02:56)
[2024-04-10 03:13] VITALS: BP 116/57; TEMP 97.7; O2SAT 94
[2024-04-10 07:08] LABS: HEMATOCRIT 24.7 % (36.0-47.0); HEMOGLOBIN 8.3 g/dl (12.0-15.5); MEAN CORPUSCULAR HEMOGLOBIN 31.7 pg (27.0-33.0); MEAN CORPUSCULAR HGB CONC 33.6 g/dl (32.0-36.5); MEAN CORPUSCULAR VOLUME 94.3 fl (80.0-96.0); PLATELET COUNT, AUTOMATED 119 10^3/uL (150-450); RED BLOOD COUNT 2.62 10^6/uL (4.00-5.40); WHITE BLOOD COUNT 11.7 10^3/uL (4.0-10.0)
[2024-04-10 07:23] VITALS: BP 109/59; TEMP 97.2; O2SAT 95
[2024-04-10 07:35] LABS: CALCIUM LEVEL 8.5 MG/DL (8.3-10.6); CREATININE FOR GFR 4.57 MG/DL (0.55-1.30); GLOMERULAR FILTRATION RATE 9.9 (>39)
[2024-04-10] MEDS: predniSONE 1 MG TAB PO SCH (08:13)
[2024-04-10] MEDS: predniSONE 5 MG TAB PO SCH (08:15)
[2024-04-10] MEDS: allopurinoL 100 MG TAB PO SCH (08:15)
[2024-04-10] MEDS: METOPROLOL SUCC *XL* 12.5MG PER 1/2 TAB (TopROL *XL*) PO SCH (08:16)
[2024-04-10] MEDS: ALPRAZolam 0.5 MG TAB PO STA (09:51)
[2024-04-10 12:07] LABS: HEMATOCRIT 26.4 % (36.0-47.0)
[2024-04-10 12:58] VITALS: BP 118/68; TEMP 97; O2SAT 98
[2024-04-10 15:51] VITALS: BP 106/59; TEMP 96.6; O2SAT 97
[2024-04-10 20:07] VITALS: BP 104/51; TEMP 97; O2SAT 97
[2024-04-10] MEDS: RAMELTEON 8 MG TAB (ROZEREM) PO SCH (20:49)
[2024-04-10 23:20] VITALS: BP 128/58; TEMP 97.3; O2SAT 97
[2024-04-11] VITALS (10 sets, daily range): BP systolic 93–137; BP diastolic 51–67; PULSE 130–150; TEMP 96.9–97.2; O2SAT 95–99
[2024-04-11] MEDS ORDERED: PERMETHRIN 5% CREAM 60 GM TOP SCH
[2024-04-11 05:48] LABS: BASO % 0.1 % (0.0-1.0); EOS # 0.2 10^3/uL (0.0-0.5); EOS % 1.6 % (0.0-3.0); HEMATOCRIT 25.9 % (36.0-47.0); HEMOGLOBIN 8.4 g/dl (12.0-15.5); LYMPH # 1.3 10^3/uL (1.5-5.0); LYMPH % 11.1 % (24.0-44.0); MEAN CORPUSCULAR HEMOGLOBIN 30.9 pg (27.0-33.0); MEAN CORPUSCULAR HGB CONC 32.4 g/dl (32.0-36.5); MEAN CORPUSCULAR VOLUME 95.2 fl (80.0-96.0); MONO # 0.8 10^3/uL (0.0-0.8); MONO % 6.7 % (2.0-8.0); NEUTROPHILS # 9.4 10^3/uL (1.5-8.5); NEUTROPHILS % 78.7 % (36.0-66.0); PLATELET COUNT, AUTOMATED 120 10^3/uL (150-450); RED BLOOD COUNT 2.72 10^6/uL (4.00-5.40); WHITE BLOOD COUNT 11.9 10^3/uL (4.0-10.0)
[2024-04-11 06:15] LABS: CREATININE FOR GFR 4.41 MG/DL (0.55-1.30); GLOMERULAR FILTRATION RATE 10.3 (>39); POTASSIUM SERUM 4.1 MMOL/L (3.5-5.1)
[2024-04-11] MEDS ORDERED: METOPROLOL TART 25 MG TABLET PO SCH (09:00)
[2024-04-11] MEDS: NITROGLYCERIN 0.4MG SUBL TABLET SL PRN (09:30)
[2024-04-11] MEDS ORDERED: METOPROLOL TART 25 MG TABLET PO STA (10:12)
[2024-04-11] MEDS: METOPROLOL TART 12.5 MG PER 1/2 TAB PO STA (10:39)
[2024-04-11] MEDS: PERMETHRIN 5% CREAM 60 GM TOP ONE (17:52)
[2024-04-11] MEDS: METOPROLOL TART 25 MG TABLET PO SCH (20:49)
[2024-04-12 03:17] VITALS: BP 124/68; TEMP 97.5; O2SAT 96
[2024-04-12 06:48] LABS: BASO % 0.1 % (0.0-1.0); EOS # 0.3 10^3/uL (0.0-0.5); EOS % 2.9 % (0.0-3.0); HEMATOCRIT 25.1 % (36.0-47.0); HEMOGLOBIN 8.3 g/dl (12.0-15.5); LYMPH # 1.4 10^3/uL (1.5-5.0); MEAN CORPUSCULAR HEMOGLOBIN 31.6 pg (27.0-33.0); MEAN CORPUSCULAR HGB CONC 33.1 g/dl (32.0-36.5); MEAN CORPUSCULAR VOLUME 95.4 fl (80.0-96.0); MONO # 0.7 10^3/uL (0.0-0.8); MONO % 6.5 % (2.0-8.0); NEUTROPHILS # 8.7 10^3/uL (1.5-8.5); NEUTROPHILS % 76.3 % (36.0-66.0); PLATELET COUNT, AUTOMATED 121 10^3/uL (150-450); RED BLOOD COUNT 2.63 10^6/uL (4.00-5.40); WHITE BLOOD COUNT 11.4 10^3/uL (4.0-10.0)
[2024-04-12 07:23] LABS: CALCIUM LEVEL 8.8 MG/DL (8.3-10.6); CREATININE FOR GFR 3.98 MG/DL (0.55-1.30); GLOMERULAR FILTRATION RATE 11.6 (>39); PERCENT SATURATION 27.5 % (13.2-45.0)
[2024-04-12 08:00] VITALS: BP_SYST 128; BP_SYST 154; BP_DIAS 70; TEMP 97.6; O2SAT 96
[2024-04-12] MEDS ORDERED: METOPROLOL SUCC *XL* 12.5MG PER 1/2 TAB (TopROL *XL*) PO SCH (09:00)
[2024-04-12 12:00] VITALS: TEMP 97.5; O2SAT 97
[2024-04-12 12:32] VITALS: BP 135/63
[2024-04-12 16:00] VITALS: BP 124/59; TEMP 97.6; O2SAT 97
[2024-04-12 19:17] VITALS: BP 119/64; TEMP 97.7; O2SAT 98
[2024-04-13] VITALS (7 sets, daily range): BP systolic 99–155; BP diastolic 52–85; TEMP 96.1–98.2; O2SAT 96–99
[2024-04-13] MEDS ORDERED: HEPARIN 1,000UNITS/ML 10ML VIAL (FOR RADIOLOGY & DIALYSIS ONLY) IV PRN (06:00)
[2024-04-13] MEDS ORDERED: LIDOCAINE 1% SDV 5ML VIAL SC PRN (06:00)
[2024-04-13] MEDS ORDERED: SODIUM CHLORIDE 0.9% 1000ML IV PRN (06:00)
[2024-04-13] MEDS ORDERED: HEPARIN 1,000UNITS/ML 10ML VIAL (FOR RADIOLOGY & DIALYSIS ONLY) XX SCH (06:00)
[2024-04-13 06:35] LABS: CALCIUM LEVEL 8.7 MG/DL (8.3-10.6); CREATININE FOR GFR 3.53 MG/DL (0.55-1.30); GLOMERULAR FILTRATION RATE 13.3 (>39); POTASSIUM SERUM 3.7 MMOL/L (3.5-5.1)
[2024-04-13] MEDS: FERRIC CARBOXYMALTOSE INJ 750 MG, VIAL MATE ADAPTER 1 EACH in NS 250 ML IV ONE (10:30)
[2024-04-13] MEDS: BISACODYL 10MG SUPP PR SCH (10:30)
[2024-04-14 03:23] VITALS: BP 138/65; TEMP 97.4; O2SAT 95
[2024-04-14 08:00] VITALS: BP 129/62; TEMP 96.9; O2SAT 97
[2024-04-14 08:08] VITALS: BP 138/65
[2024-04-14 08:19] LABS: BASO % 0.1 % (0.0-1.0); EOS # 0.3 10^3/uL (0.0-0.5); EOS % 2.3 % (0.0-3.0); HEMATOCRIT 24.6 % (36.0-47.0); HEMOGLOBIN 7.8 g/dl (12.0-15.5); LYMPH # 1.2 10^3/uL (1.5-5.0); LYMPH % 10.5 % (24.0-44.0); MEAN CORPUSCULAR HEMOGLOBIN 31.3 pg (27.0-33.0); MEAN CORPUSCULAR HGB CONC 31.7 g/dl (32.0-36.5); MEAN CORPUSCULAR VOLUME 98.8 fl (80.0-96.0); MONO # 0.7 10^3/uL (0.0-0.8); MONO % 6.4 % (2.0-8.0); NEUTROPHILS # 8.9 10^3/uL (1.5-8.5); NEUTROPHILS % 78.2 % (36.0-66.0); PLATELET COUNT, AUTOMATED 141 10^3/uL (150-450); RED BLOOD COUNT 2.49 10^6/uL (4.00-5.40); WHITE BLOOD COUNT 11.3 10^3/uL (4.0-10.0)
[2024-04-14 08:44] LABS: CALCIUM LEVEL 9.1 MG/DL (8.3-10.6); CREATININE FOR GFR 3.01 MG/DL (0.55-1.30); MAGNESIUM LEVEL 1.9 MG/DL (1.8-2.4); POTASSIUM SERUM 3.8 MMOL/L (3.5-5.1)
[2024-04-14] MEDS ORDERED: ALLO100T PO (11:56)
[2024-04-14 12:00] VITALS: BP 135/79; TEMP 97; O2SAT 98
== END 2024-04-14 13:46 | DRG 682 ==
LOC: M ED 13:04 → M ED INP 18:53 → M PCU 22:35
PROVIDERS: ADMIT General Practice; ATTEND Student in an Organized Health Care Education/Training Program
PROC: B246ZZZ Ultrasonography of Right and Left Heart (ICD-10-PCS; principal; 2024-04-08)
DX: N17.9 Acute kidney failure, unspecified (principal); I21.4 Non-ST elevation (NSTEMI) myocardial infarction; I13.0 Hypertensive heart and chronic kidney disease with heart failure and stage 1 through stage 4 chronic kidney disease, or unspecified chronic kidney disease; R65.10 Systemic inflammatory response syndrome (SIRS) of non-infectious origin without acute organ dysfunction; E87.20 Acidosis, unspecified; E27.40 Unspecified adrenocortical insufficiency; I48.20 Chronic atrial fibrillation, unspecified; I50.22 Chronic systolic (congestive) heart failure; N18.32 Chronic kidney disease, stage 3b; J44.9 Chronic obstructive pulmonary disease, unspecified; E11.51 Type 2 diabetes mellitus with diabetic peripheral angiopathy without gangrene; E11.22 Type 2 diabetes mellitus with diabetic chronic kidney disease; M35.3 Polymyalgia rheumatica; I25.10 Atherosclerotic heart disease of native coronary artery without angina pectoris; N25.81 Secondary hyperparathyroidism of renal origin; I25.5 Ischemic cardiomyopathy; M85.80 Other specified disorders of bone density and structure, unspecified site; M19.90 Unspecified osteoarthritis, unspecified site; E87.5 Hyperkalemia; G47.33 Obstructive sleep apnea (adult) (pediatric); G89.29 Other chronic pain; M54.9 Dorsalgia, unspecified; D63.1 Anemia in chronic kidney disease; D51.0 Vitamin B12 deficiency anemia due to intrinsic factor deficiency; Z86.16 Personal history of COVID-19; E55.9 Vitamin D deficiency, unspecified; M10.9 Gout, unspecified; G25.0 Essential tremor; N28.1 Cyst of kidney, acquired; Z86.73 Personal history of transient ischemic attack (TIA), and cerebral infarction without residual deficits; Z95.5 Presence of coronary angioplasty implant and graft; Z79.82 Long term (current) use of aspirin; Z79.52 Long term (current) use of systemic steroids; Z79.899 Other long term (current) drug therapy; Z90.49 Acquired absence of other specified parts of digestive tract; Z88.1 Allergy status to other antibiotic agents; Z88.8 Allergy status to other drugs, medicaments and biological substances; Z91.041 Radiographic dye allergy status; M81.0 Age-related osteoporosis without current pathological fracture

== ENCOUNTER 2024-04-14 11:30 | Inpatient (IN) | payer MEDICARE, BC ==
[~2024-04-14] VITALS: Ht 165.1 cm; Wt 56.4 kg
[~2024-04-14 11:30] MED LIST changes: +ALLO100T PO; +CO Q200C10 PO; +ENTR1TAB PO; +JARD1TAB PO; +MOME50SP2 NARES; +NITR0.4S14 SL; +PANT40TA29 PO; +PRED1TABL PO; +PRED5TA PO; +ROSU20TA86 PO; +TRAM50TA2 PO; +VALA1TAB5 PO
[2024-04-14] MEDS ORDERED: ALLO100T PO (11:56)
[2024-04-14] MEDS ORDERED: MIRALAX *UNIT DOSE* 17GM PACKET PO PRN (12:00)
[2024-04-14] MEDS ORDERED: ONDANSETRON 4MG TAB PO PRN (12:00)
[2024-04-14] MEDS ORDERED: GLUCAGON INJ 1MG VIAL SC PRN (12:00)
[2024-04-14] MEDS ORDERED: DEXTROSE 50% 50ML SYRINGE IV PRN (12:00)
[2024-04-14] MEDS ORDERED: GLUCOSE 4 GM CHEW PO PRN (12:00)
[2024-04-14] MEDS ORDERED: SIMETHICONE 80MG CHEW TAB PO PRN (12:00)
[2024-04-14] MEDS ORDERED: MOM 30ML SUSPENSION UDC PO PRN (12:00)
[2024-04-14] MEDS: INSULIN LISPRO (NovoLOG) PER UNIT SC SCH ×2 (12:00→21:00)
[2024-04-14] MEDS ORDERED: BISACODYL 10MG SUPP PR PRN (12:00)
[2024-04-14] MEDS ORDERED: MAALOX 30 ML SUSP *UDC PO PRN (12:00)
[2024-04-14] MEDS ORDERED: BISACODYL 5MG TAB PO PRN (12:00)
[2024-04-14] MEDS ORDERED: FLEET ENEMA PR PRN (12:00)
[2024-04-14 13:50] VITALS: BP 144/62; TEMP 97.7; O2SAT 100
[2024-04-14] MEDS ORDERED: NITROGLYCERIN 0.4MG SUBL TABLET SL PRN (14:35)
[2024-04-14] MEDS ORDERED: valACYclovir HCL 500 MG TAB PO PRN (14:35)
[2024-04-14] MEDS ORDERED: PILL CUTTER 1 EACH XX PRN (15:35)
[2024-04-14] MEDS ORDERED: METOPROLOL SUCC *XL* 25MG TAB (TopROL *XL*) PO SCH (21:00)
[2024-04-14 21:05] VITALS: BP 120/57; TEMP 97.9; O2SAT 96
[2024-04-14] MEDS: PANTOPRAZOLE 40MG TAB (PROTONIX) PO SCH (21:11)
[2024-04-14] MEDS: RAMELTEON 8 MG TAB (ROZEREM) PO SCH (21:12)
[2024-04-14] MEDS: SUCRALFATE 1 GM TAB PO SCH (21:12)
[2024-04-14] MEDS: METOPROLOL TART 25 MG TABLET PO SCH (21:13)
[2024-04-15] VITALS (7 sets, daily range): BP systolic 100–135; BP diastolic 47–62; TEMP 97.2–97.6; O2SAT 96–99
[2024-04-15 07:31] LABS: BASO % 0.2 % (0.0-1.0); EOS # 0.2 10^3/uL (0.0-0.5); EOS % 1.3 % (0.0-3.0); HEMATOCRIT 24.1 % (36.0-47.0); HEMOGLOBIN 7.8 g/dl (12.0-15.5); LYMPH # 1.1 10^3/uL (1.5-5.0); MEAN CORPUSCULAR HEMOGLOBIN 31.7 pg (27.0-33.0); MEAN CORPUSCULAR HGB CONC 32.4 g/dl (32.0-36.5); MONO # 0.7 10^3/uL (0.0-0.8); MONO % 5.9 % (2.0-8.0); NEUTROPHILS # 9.5 10^3/uL (1.5-8.5); NEUTROPHILS % 81.1 % (36.0-66.0); PLATELET COUNT, AUTOMATED 155 10^3/uL (150-450); RED BLOOD COUNT 2.46 10^6/uL (4.00-5.40); WHITE BLOOD COUNT 11.7 10^3/uL (4.0-10.0)
[2024-04-15] MEDS: FLUTICASONE PROP 0.05% NASAL SPRAY 16 GM (FLONASE) NARES SCH (07:48)
[2024-04-15] MEDS: CLOPIDOGREL 75 MG TAB PO SCH (07:49)
[2024-04-15] MEDS: allopurinoL 100 MG TAB PO SCH (07:49)
[2024-04-15] MEDS: predniSONE 5 MG TAB PO SCH (07:49)
[2024-04-15] MEDS: DAPAGLIFLOZIN PROPANEDIOL 10MG TABLET (FARXIGA) PO SCH (07:50)
[2024-04-15] MEDS: ROSUVASTATIN 10 MG TAB (CRESTOR) PO SCH (07:50)
[2024-04-15] MEDS: CYANOCOBALAMIN 500 MCG TAB PO SCH (07:51)
[2024-04-15] MEDS: CO-ENZYME Q10 50 MG CAP PO SCH (07:51)
[2024-04-15] MEDS: ASPIRIN 81MG ENTERIC TABLET PO SCH (07:51)
[2024-04-15] MEDS: predniSONE 1 MG TAB PO SCH (07:52)
[2024-04-15] MEDS ORDERED: NS 1,000 ML IV SCH (08:00)
[2024-04-15 08:06] LABS: CREATININE FOR GFR 2.61 MG/DL (0.55-1.30); GLOMERULAR FILTRATION RATE 18.8 (>39); POTASSIUM SERUM 3.5 MMOL/L (3.5-5.1)
[2024-04-15] MEDS: SPIRONOLACTONE 25 MG TAB PO SCH (09:42)
[2024-04-15] MEDS: BISOPROLOL FUM 2.5 MG PER 1/2TAB PO SCH (09:43)
[2024-04-15] MEDS: SUCRALFATE SUSP 1GM/10ML UD PO SCH (16:51)
[2024-04-15] MEDS: ACETAMINOPHEN TAB 650MG DOSE (2X325MG) PO PRN (17:32)
[2024-04-15] MEDS: FUROSEMIDE 40MG/4ML VIAL IV ONE (20:15)
[2024-04-16 04:00] VITALS: BP 119/61; TEMP 97.9; O2SAT 97
[2024-04-16] MEDS: CYANOCOBALAMIN 250 MCG TABLET PO SCH (08:34)
[2024-04-16 08:43] LABS: CALCIUM LEVEL 9.4 MG/DL (8.3-10.6); CREATININE FOR GFR 2.46 MG/DL (0.55-1.30); GLOMERULAR FILTRATION RATE 20.1 (>39); PHOSPHORUS LEVEL 2.6 MG/DL (2.4-5.1); POTASSIUM SERUM 3.3 MMOL/L (3.5-5.1)
[2024-04-16] MEDS ORDERED: CALCITRIOL 0.25 MCG CAP (S0169) PO SCH (09:00)
[2024-04-16] MEDS: DARBEPOETIN 40MCG/0.4ML *NON-DIALYSIS* SYRINGE SQ SCH (10:31)
[2024-04-16] MEDS: TORSEMIDE 10 MG TABLET PO SCH (10:32)
[2024-04-16] MEDS: POTASSIUM CHLORIDE 10MEQ SR TABLET PO ONE (10:32)
[2024-04-16 12:00] VITALS: BP 108/58; TEMP 97.4; O2SAT 97
[2024-04-16] MEDS: NYSTATIN 500,000U/5ML SUSP UDC SS SCH (12:03)
[2024-04-16] MEDS: valACYclovir HCL 500 MG TAB PO ONE ×2 (12:04→20:29)
[2024-04-16 13:46] LABS: BASO % 0.1 % (0.0-1.0); EOS % 0.1 % (0.0-3.0); HEMATOCRIT 32.1 % (36.0-47.0); LYMPH # 0.5 10^3/uL (1.5-5.0); LYMPH % 3.2 % (24.0-44.0); MEAN CORPUSCULAR HEMOGLOBIN 32.4 pg (27.0-33.0); MEAN CORPUSCULAR HGB CONC 33.3 g/dl (32.0-36.5); MEAN CORPUSCULAR VOLUME 97.3 fl (80.0-96.0); MONO # 0.5 10^3/uL (0.0-0.8); NEUTROPHILS # 15.4 10^3/uL (1.5-8.5); NEUTROPHILS % 91.8 % (36.0-66.0); PLATELET COUNT, AUTOMATED 184 10^3/uL (150-450); WHITE BLOOD COUNT 16.8 10^3/uL (4.0-10.0)
[2024-04-16 13:51] LABS: HEMOGLOBIN 10.7 g/dl (12.0-15.5)
[2024-04-16 20:00] VITALS: BP 129/62; TEMP 96.8; O2SAT 96
[2024-04-16] MEDS: POTASSIUM CHLORIDE 10MEQ SR TABLET PO SCH (20:24)
[2024-04-16] MEDS: traZODone 50 MG TAB PO SCH (20:25)
[2024-04-16] MEDS: traMADol 50 MG TAB PO PRN (23:25)
[2024-04-17 04:00] VITALS: BP 95/49; TEMP 96.6; O2SAT 96
[2024-04-17 06:31] LABS: BASO % 0.3 % (0.0-1.0); EOS # 0.1 10^3/uL (0.0-0.5); EOS % 1.2 % (0.0-3.0); HEMATOCRIT 29.6 % (36.0-47.0); HEMOGLOBIN 9.8 g/dl (12.0-15.5); LYMPH # 1.2 10^3/uL (1.5-5.0); LYMPH % 10.2 % (24.0-44.0); MEAN CORPUSCULAR HGB CONC 33.1 g/dl (32.0-36.5); MEAN CORPUSCULAR VOLUME 96.7 fl (80.0-96.0); MONO # 0.8 10^3/uL (0.0-0.8); MONO % 6.6 % (2.0-8.0); NEUTROPHILS # 9.4 10^3/uL (1.5-8.5); NEUTROPHILS % 79.9 % (36.0-66.0); PLATELET COUNT, AUTOMATED 155 10^3/uL (150-450); RED BLOOD COUNT 3.06 10^6/uL (4.00-5.40); WHITE BLOOD COUNT 11.7 10^3/uL (4.0-10.0)
[2024-04-17 06:57] LABS: CALCIUM LEVEL 9.8 MG/DL (8.3-10.6); CREATININE FOR GFR 2.46 MG/DL (0.55-1.30); GLOMERULAR FILTRATION RATE 20.1 (>39); POTASSIUM SERUM 3.9 MMOL/L (3.5-5.1)
[2024-04-17] MEDS: CALCITRIOL 0.25 MCG CAP (S0169) PO SCH (09:15)
[2024-04-17] MEDS: allopurinoL 100 MG TAB PO SCH (09:16)
[2024-04-17 12:00] VITALS: BP 117/57; TEMP 97.9; O2SAT 96
[2024-04-17 20:06] VITALS: BP 132/70; TEMP 96.6; O2SAT 96
[2024-04-18 04:19] VITALS: BP 121/59; TEMP 97.2; O2SAT 95
[2024-04-18 07:22] LABS: BASO % 0.4 % (0.0-1.0); EOS # 0.1 10^3/uL (0.0-0.5); EOS % 1.1 % (0.0-3.0); HEMATOCRIT 32.2 % (36.0-47.0); HEMOGLOBIN 10.4 g/dl (12.0-15.5); LYMPH # 1.5 10^3/uL (1.5-5.0); LYMPH % 13.8 % (24.0-44.0); MEAN CORPUSCULAR HEMOGLOBIN 31.9 pg (27.0-33.0); MEAN CORPUSCULAR HGB CONC 32.3 g/dl (32.0-36.5); MEAN CORPUSCULAR VOLUME 98.8 fl (80.0-96.0); MONO # 0.7 10^3/uL (0.0-0.8); MONO % 6.3 % (2.0-8.0); NEUTROPHILS % 76.3 % (36.0-66.0); PLATELET COUNT, AUTOMATED 162 10^3/uL (150-450); RED BLOOD COUNT 3.26 10^6/uL (4.00-5.40); WHITE BLOOD COUNT 10.5 10^3/uL (4.0-10.0)
[2024-04-18 07:49] LABS: C REACTIVE PROTEIN QUANTITATIV < 0.40 MG/DL (<1.0)
[2024-04-18 07:50] LABS: ALKALINE PHOSPHATASE 74 U/L (46-116); ALT/SGPT 19 U/L (7.0-40); AST/SGOT 10 U/L (<34); BILIRUBIN,TOTAL 0.9 MG/DL (0.3-1.2); BLOOD UREA NITROGEN 45 MG/DL (9-23); CALCIUM LEVEL 9.8 MG/DL (8.3-10.6); CARBON DIOXIDE LEVEL 21 MMOL/L (20-31); CHLORIDE LEVEL 111 MMOL/L (98-107); CREATININE FOR GFR 2.44 MG/DL (0.55-1.30); GLOMERULAR FILTRATION RATE 20.3 (>39); GLUCOSE, FASTING 80 MG/DL (74-106); MAGNESIUM LEVEL 1.8 MG/DL (1.8-2.4); POTASSIUM SERUM 4.1 MMOL/L (3.5-5.1); SODIUM LEVEL 142 MMOL/L (136-145); TOTAL PROTEIN 5.4 G/DL (5.7-8.2)
[2024-04-18 12:00] VITALS: BP 129/61; TEMP 97.2; O2SAT 98
[2024-04-18] MEDS: PERMETHRIN 5% CREAM 60 GM TOP ONE (12:20)
[2024-04-18] MEDS: FEXOFENADINE 60MG TAB PO ONE (14:45)
[2024-04-18 20:00] VITALS: BP 126/64; TEMP 96.9; O2SAT 99
[2024-04-19 04:00] VITALS: BP 115/53; TEMP 97.1; O2SAT 99
[2024-04-19] MEDS: FEXOFENADINE 60MG TAB PO SCH (09:47)
[2024-04-19] MEDS: predniSONE 1 MG TAB PO SCH (09:48)
[2024-04-19 12:00] VITALS: BP 106/56; TEMP 98.2; O2SAT 100
[2024-04-19 19:59] VITALS: BP 104/56; TEMP 97.5; O2SAT 99
[2024-04-20 04:00] VITALS: BP 111/56; TEMP 97.4; O2SAT 100
[2024-04-20 12:00] VITALS: BP 103/96; TEMP 98.2; O2SAT 95
[2024-04-20 20:00] VITALS: BP 102/65; TEMP 97.4; O2SAT 100
[2024-04-21 03:35] VITALS: BP 115/57; TEMP 97.8; O2SAT 98
[2024-04-21 07:35] LABS: CALCIUM LEVEL 9.1 MG/DL (8.3-10.6); CREATININE FOR GFR 2.63 MG/DL (0.55-1.30); GLOMERULAR FILTRATION RATE 18.7 (>39); POTASSIUM SERUM 4.1 MMOL/L (3.5-5.1)
[2024-04-21 12:00] VITALS: BP 120/59; TEMP 97; O2SAT 99
[2024-04-21 12:51] LABS: HEMATOCRIT 31.4 % (36.0-47.0); HEMOGLOBIN 10.1 g/dl (12.0-15.5); MEAN CORPUSCULAR HEMOGLOBIN 32.3 pg (27.0-33.0); MEAN CORPUSCULAR HGB CONC 32.2 g/dl (32.0-36.5); MEAN CORPUSCULAR VOLUME 100.3 fl (80.0-96.0); PLATELET COUNT, AUTOMATED 168 10^3/uL (150-450); RED BLOOD COUNT 3.13 10^6/uL (4.00-5.40); WHITE BLOOD COUNT 10.7 10^3/uL (4.0-10.0)
[2024-04-21] MEDS: TORSEMIDE 10 MG TABLET PO SCH (18:02)
[2024-04-21 20:00] VITALS: BP 115/61; TEMP 97.8; O2SAT 97
[2024-04-22 04:00] VITALS: BP 115/57; TEMP 97; O2SAT 95
[2024-04-22 07:21] LABS: CALCIUM LEVEL 8.7 MG/DL (8.3-10.6); CREATININE FOR GFR 2.64 MG/DL (0.55-1.30); GLOMERULAR FILTRATION RATE 18.6 (>39); POTASSIUM SERUM 3.9 MMOL/L (3.5-5.1)
[2024-04-22 12:00] VITALS: BP 101/64; TEMP 97.9; O2SAT 97
[2024-04-22] MEDS ORDERED: TORS10TA3 PO (12:58)
[2024-04-22] MEDS ORDERED: TRAZ-252 PO (12:58)
[2024-04-22] MEDS ORDERED: POTA-136 PO (12:58)
[2024-04-22] MEDS ORDERED: FEXO60TA99 PO (12:58)
[2024-04-22] MEDS ORDERED: PRED1TABL PO (12:58)
[2024-04-22] MEDS ORDERED: BISO5TAB14 PO (12:58)
[2024-04-22] MEDS ORDERED: TRAM50TA2 PO (12:58)
[2024-04-22] MEDS ORDERED: ACET1TAB55 PO (12:58)
[2024-04-22] MEDS ORDERED: INSUHUMDS SC (12:58)
[2024-04-22] MEDS ORDERED: VITA250T7 PO (12:58)
[2024-04-22] MEDS: TORSEMIDE 10 MG TABLET PO SCH (15:40)
[2024-04-22 19:48] VITALS: BP 119/57; TEMP 97.1; O2SAT 96
[2024-04-23 04:17] VITALS: BP 107/64; TEMP 97.4; O2SAT 98
[2024-04-23 08:56] VITALS: BP 120/56
[2024-04-23 09:13] LABS: CALCIUM LEVEL 9.5 MG/DL (8.3-10.6); CREATININE FOR GFR 2.7 MG/DL (0.55-1.30); GLOMERULAR FILTRATION RATE 18.1 (>39); POTASSIUM SERUM 4.2 MMOL/L (3.5-5.1)
[2024-04-24] MEDS ORDERED: CALCITRIOL 0.25 MCG CAP (S0169) PO SCH (09:00)
== END 2024-04-23 10:49 | disposition home or self-care (01) | DRG 91 ==
LOC: M PM&R 13:50
PROVIDERS: ADMIT Physical Medicine & Rehabilitation; ATTEND Physical Medicine & Rehabilitation
PROC: 30233N1 Transfusion of Nonautologous Red Blood Cells into Peripheral Vein, Percutaneous Approach (ICD-10-PCS; principal; 2024-04-15)
DX: G72.89 Other specified myopathies (principal); I21.4 Non-ST elevation (NSTEMI) myocardial infarction; I50.22 Chronic systolic (congestive) heart failure; I13.0 Hypertensive heart and chronic kidney disease with heart failure and stage 1 through stage 4 chronic kidney disease, or unspecified chronic kidney disease; N25.81 Secondary hyperparathyroidism of renal origin; N17.9 Acute kidney failure, unspecified; I25.5 Ischemic cardiomyopathy; I48.0 Paroxysmal atrial fibrillation; I25.10 Atherosclerotic heart disease of native coronary artery without angina pectoris; N18.32 Chronic kidney disease, stage 3b; I70.1 Atherosclerosis of renal artery; E11.22 Type 2 diabetes mellitus with diabetic chronic kidney disease; Z86.73 Personal history of transient ischemic attack (TIA), and cerebral infarction without residual deficits; M35.3 Polymyalgia rheumatica; D63.1 Anemia in chronic kidney disease; R33.9 Retention of urine, unspecified; G47.00 Insomnia, unspecified; J30.2 Other seasonal allergic rhinitis; M51.36 Other intervertebral disc degeneration, lumbar region; M50.30 Other cervical disc degeneration, unspecified cervical region; E78.5 Hyperlipidemia, unspecified; D51.0 Vitamin B12 deficiency anemia due to intrinsic factor deficiency; B00.1 Herpesviral vesicular dermatitis; L89.312 Pressure ulcer of right buttock, stage 2; G47.33 Obstructive sleep apnea (adult) (pediatric); E87.6 Hypokalemia; L89.152 Pressure ulcer of sacral region, stage 2; I95.1 Orthostatic hypotension; E55.9 Vitamin D deficiency, unspecified; R26.89 Other abnormalities of gait and mobility; E11.51 Type 2 diabetes mellitus with diabetic peripheral angiopathy without gangrene; Z74.1 Need for assistance with personal care; Z74.09 Other reduced mobility; Z79.82 Long term (current) use of aspirin; Z79.02 Long term (current) use of antithrombotics/antiplatelets; Z87.442 Personal history of urinary calculi; Z95.1 Presence of aortocoronary bypass graft; Z79.899 Other long term (current) drug therapy; Z99.81 Dependence on supplemental oxygen; Z88.1 Allergy status to other antibiotic agents; Z88.8 Allergy status to other drugs, medicaments and biological substances; Z91.041 Radiographic dye allergy status; Z86.16 Personal history of COVID-19; Z87.891 Personal history of nicotine dependence; Z90.49 Acquired absence of other specified parts of digestive tract